=== PATIENT | female | born 1985 | race Caucasian/White ===

== ENCOUNTER 2016-12-27 09:19 | Day surgery (SDC) | payer OTHER ==
[2016-12-27] VITALS (15 sets, daily range): BP systolic 96–131; BP diastolic 61–76; PULSE 72–98; RESP 13–28; Ht 152.4 cm; Wt 50.3 kg
[~2016-12-27] VITALS: Ht 152.4 cm; Wt 50.3 kg
[2016-12-27] MEDS ORDERED: CEFAZOLIN 2 GM/50 ML (PMX) 50 ML IVPB SCH (10:30)
[2016-12-27] MEDS ORDERED: BUPIVACAINE 0.5% (SDV) 30 ML INJ ONE (10:38)
[2016-12-27] MEDS ORDERED: FENTAnyl 50 MCG/ML VIAL ONE (11:09)
[2016-12-27] MEDS ORDERED: MIDAZOLAM 1 MG/ML 2 ML INJ ONE (11:09)
[2016-12-27] MEDS ORDERED: PROPOFOL 20 ML ONE (11:09)
--- NOTE | 2016-12-27 11:10 | HPN ---
Date/Time of Note Date/Time of Note DATE: 12/27/16 TIME: 11:10 Interval H&P Admission Note Pt. seen H&P reviewed: No system changes JIMY HEDRICK DPM Dec 27, 2016 11:10
[2016-12-27] MEDS ORDERED: ONDANSETRON 4 MG INJ ONE (11:30)
[2016-12-27] MEDS ORDERED: CEFAZOLIN 1 GM INJ ONE (11:30)
[2016-12-27] MEDS ORDERED: METOCLOPRAMIDE 10 MG INJ ONE (11:30)
[2016-12-27] MEDS: FENTAnyl 50 MCG/ML VIAL IV PRN ×3 (12:18→13:41)
--- NOTE | 2016-12-27 12:25 | SIPON ---
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
--- NOTE | 2016-12-27 12:25 | OPR ---
Date/Time of Note Date/Time of Note DATE: 12/27/16 TIME: 12:25 Operative Report Procedure Date: Dec 27, 2016 Preoperative Diagnosis Painful exostosis right foot Painful soft tissue mass right foot Postoperative Diagnosis Painful exostosis right foot Painful soft tissue mass right foot Operation/Procedure Performed Exostectomy right foot Surgical excision right foot mass Surgeon see signature line [employer] None Anesthesia Type: MAC Estimated Blood Loss: minimal Transfusion none Specimen Right foot bone and soft tissue right foot. Grafts/Implants none Tubes/Drains None Complications none Pt Condition Post Procedure: stable Disposition: PACU Indications This is a pleasant 31-year-old female patient who has been suffering with pain in the right foot secondary to bony exostosis and possible soft tissue mass of the right foot. Patient was evaluated and was found to have exostosis right dorsal foot and soft tissue mobile mass. Patient has failed the following treatments: Change in shoe gear, pain medication, change in activity. Patient seeks surgical management. Recommended procedure: Surgical excision of painful soft tissue mass and ex ostomy of the right foot. Risks and complications of this type of surgery was discussed with patient in great detail. Risks and complications discussed included, but are not limited to, postoperative infection, postoperative pain, hardware failure, failure of surgery to correct the problem, need for additional surgical procedures, deep venous thrombosis, limb loss and loss of life. Patient understands the discussion and agrees to the procedure. An informed consent was signed, obtained and placed in the chart. No guarantees or warrantees was given or implied as to the outcome of the procedure either in verbal or written form. Procedure Description Procedure in detail: The patient was seen in the preoperative area. Proposed surgery was discussed with patient in great detail. Risks and complications were discussed. Opportunity was given to patient to ask questions and all questions were answered. No guarantee or warranty was given or implied as to the outcome of the procedure, either in verbal or written form. Patient acknowledges understanding of the discussion and agrees to the procedure. An informed consent was obtained, signed and placed in the chart. The patient was brought into the operating room and was placed on the operating table in the supine position. IV sedation was administered to the patient by the anesthesiologist and I injected the right ankle with 20 cc of a one-to-one mixture of 2% lidocaine plain and 0.5% Marcaine plain. A pneumatic ankle tourniquet was applied to the right ankle. The right foot was scrubbed, prepped and draped in the usual aseptic manner. An Esmarch bandage was utilized to exsanguinate the right foot and the pneumatic ankle tourniquet was inflated to 250 mmHg pressure. Attention was directed to the dorsal right foot: A small 2 cm incision was made over the dorsal aspect of the right foot over the midfoot area where the bony prominence was found. Dissection was deepened with care being taken to identify and protect vital neurovascular structures. Dissection was deepened to the periosteal layer and the exostosis was identified. Soft tissue mass was present which was surgically excised and passed to the back table. Ostectomy was performed using osteotomes and a mallet. Hand rasp was used to smooth out the rough edges. The wound was flushed with copious amounts of sterile normal saline. There was no further bony or soft tissue bump present or palpable in the area. Subcutaneous layer was closed using 3-0 Vicryl suture and the skin was closed using 5-0 Monocryl subcuticular stitch pattern. Steri-Strips were applied. Postoperative injection of 0.5% Marcaine plain was given about 10 cc in the area. Sterile dressing was applied to the right foot and the pneumatic ankle tourniquet was deflated at this time. Prompt hyperemic response was noted to digits of the right. The patient tolerated the procedure and anesthesia well. She was transferred to the recovery room with vital signs stable and vascular status intact to the right foot. Patient will be discharged home after postoperative monitoring. Postoperative orders have been written. Patient will be followed up in 1 week. JIMY HEDRICK DPM Dec 27, 2016 12:25 JIMY HEDRICK DPM Dec 27, 2016 12:25
[2016-12-27] MEDS ORDERED: DIPHENHYDRAMINE 50 MG INJ IV PRN (12:30)
[2016-12-27] MEDS ORDERED: LABETALOL HCL 20MG INJ IV PRN (12:30)
[2016-12-27] MEDS ORDERED: ONDANSETRON 4 MG INJ IV PRN (12:30)
[2016-12-27] MEDS ORDERED: FENTAnyl 50 MCG/ML VIAL IV PRN ×2 (12:30)
[2016-12-27] MEDS ORDERED: METOCLOPRAMIDE 10 MG INJ IV PRN (12:30)
[2016-12-27] MEDS ORDERED: EPHEDrine SULFATE 50 MG/5 ML SYG IV PRN (12:30)
[2016-12-27] MEDS ORDERED: OXYCODONE/ACETAMINOPHEN (5/325) TAB PO PRN ×2 (12:30)
[2016-12-27] MEDS ORDERED: MIDAZOLAM 1 MG/ML 2 ML INJ IV PRN (12:30)
[2016-12-27] MEDS ORDERED: hydrALAzine 20 MG INJ IV PRN (12:30)
[2016-12-27] MEDS ORDERED: MEPERIDINE 25 MG INJ IV PRN (12:30)
--- NOTE | 2016-12-27 16:15 | RADRPT ---
PROCEDURE: XR Foot. CLINICAL INDICATION: Right foot pain. TECHNIQUE: AP and lateral views of the right foot was obtained. The images were reviewed on a PAC S workstation. COMPARISON: None. FINDINGS: The bones of the foot appear intact, with no evidence of fracture, dislocation, or subluxation. The joint spaces are preserved. Bone mineralization is normal. The soft tissue structures are intact. IMPRESSION: Unremarkable right foot radiographs. RPTAT: HPNM Physician Josue Date Time Electronically viewed and signed by Physician Josue on 12/27/2016 16:14 /
== END 2016-12-27 14:37 | disposition home or self-care (01) ==
LOC: SDS 09:19
PROVIDERS: ATTEND Podiatrist Foot & Ankle Surgery
DX: M89.9 Disorder of bone, unspecified (principal); R22.41 Localized swelling, mass and lump, right lower limb; M79.671 Pain in right foot
CPT/HCPCS: 28108; 73620; 84703; 88304; 88307; 88311; J0690; J2175; J2250; J2405; J2765; J3010; Z7512; Z7610

== ENCOUNTER 2017-02-12 11:50 | Emergency (ER) | payer OTHER ==
[~2017-02-12] VITALS: Ht 162.6 cm; Wt 50.6 kg
[2017-02-12 11:56] VITALS: Ht 162.6 cm; Wt 50.6 kg
--- NOTE | 2017-02-12 13:13 | ERD ---
ER Documentation Chief Complaint Chief Complaint foot pain & swelling s/p surgery for bunion on 12/24/16 HPI 31-year-old female complaining of right foot pain 1.5 months. Patient stated that she had surgery on 12/27/2016 have been shaving on top of her right foot. She is having pain continuously since the surgery. Patient reports the bump on top of her foot is not even bigger than before the surgery. She has been following up with her duster tender, who had ordered x-ray 2 weeks ago. It was negative. [employer] also ordered MRI, patient still waiting for authorization for MRI. She is taking ibuprofen [place] prescribed to her by duster tender for pain. States that the medication did not help with her pain. His fever or chills. Denies erythema or drainage of the surgical site. ROS All systems reviewed and are negative except as per history of present illness. Medications Home Meds No Active Prescriptions or Reported Meds Allergies Allergies: Coded Allergies: No Known Allergy (Unverified , 12/27/16) PMhx/Soc History of Surgery: Yes (BREAST IMPLANTS) Anesthesia Reaction: No Hx Neurological Disorder: No Hx Respiratory Disorders: No Hx Cardiac Disorders: No Hx Psychiatric Problems: No Hx Miscellaneous Medical Probl: No Hx Alcohol Use: No Hx Substance Use: No Hx Tobacco Use: No Physical Exam Vitals Vital Signs Date Time Temp Pulse Resp B/P Pulse Ox O2 Delivery O2 Flow Rate FiO2 02/12/17 11:56 99.8 70 20 128/84 99 Physical Exam General: Well-developed, well-nourished, conscious and coherent, in no distress Skin: Warm and dry without rash, good texture and turgor Head: Normocephalic without evidence of trauma Eyes: Sclera and conjunctivae normal; pupils equal, round, and reactive to light; extraocular movements are intact Chest: Normal AP diameter. Good expansion without retractions. Nontender. Lungs are clear to auscultate bilaterally with good tidal volume Heart: Regular rate and rhythm. No murmur, rub, or gallops heard Extremities: Surgical scar noted on the dorsal right foot on the midfoot, no erythema, swelling, or exudate from the surgical site. Slightly tender to palpation at the surgical site. Full range of motion. Good strength bilaterally. No clubbing, cyanosis, or edema. Peripheral pulses are intact. Sensation intact Neuro: Alert and oriented 4, GCS 15. Cranial nerves grossly intact. Motor and sensory exams nonfocal. Moves all extremities. Speech clear. Gait normal Procedures/MDM Well-appearing 31-year-old female presented ED complaining of pain in the right foot after surgery. Patient does not have any sign of surgical site infection. I doubt fractures or dislocations. She is followed by her duster tender. I have asked patient to return to her duster tender for further follow-up and management. She has already received narcotic medications from her duster tender, I told her that I cannot write anymore pain medications for her. Patient appears well, stable for discharge and outpatient management. Medical decision making shared with patient and family. Education provided to patient and family. Patient and family expressed understanding of the plan. Medications on discharge: None. Follow-up: Primary care provider in 2-3 days or return to ED if worse. Disclaimer: Inadvertent spelling and grammatical errors are likely due to EHR/ dictation software use and do not reflect on the overall quality of patient care. Also, please note that the electronic time recorded on this note does not necessarily reflect the actual time of the patient encounter. Departure Diagnosis: Primary Impression: Foot pain Laterality: right Qualified Code: M79.671 - Right foot pain Condition: Stable Patient Instructions: Foot Surgery: Bone Spurs Additional Instructions: Follow up with your foot doctor. OSVALDO GONZALES NP Feb 12, 2017 13:13
== END 2017-02-12 13:55 | disposition left against medical advice (07) ==
LOC: FTE 11:50
DX: M79.671 Pain in right foot (principal); R40.2412 Glasgow coma scale score 13-15, at arrival to emergency department
CPT/HCPCS: 99282

== ENCOUNTER 2018-05-03 12:44 | Inpatient (IN) | payer OTHER ==
[2018-05-03] VITALS (15 sets, daily range): BP systolic 111–134; BP diastolic 74–89; PULSE 80–150; RESP 16–24; Ht 152.4 cm; Wt 52.4 kg
[~2018-05-03] VITALS: Ht 152.4 cm; Wt 52.4 kg
[2018-05-03] MEDS ORDERED: HYDROCODONE/APAP (5/325) TAB PO PRN (14:00)
[2018-05-03] MEDS ORDERED: NACL 0.9% 3 ML SYG IV SCH (14:00)
[2018-05-03] MEDS ORDERED: ACETAMINOPHEN 325 MG TAB PO PRN (14:00)
[2018-05-03] MEDS ORDERED: ONDANSETRON 4 MG INJ IV PRN ×2 (14:00→17:00)
--- NOTE | 2018-05-03 14:02 | HP ---
Date/Time of Note Date/Time of Note DATE: 05/03/18 TIME: 14:02 Assessment/Plan VTE Prophylaxis SCD applied (from Nsg): Yes Pharmacological prophylaxis: NA/contraindicated Pharm contraindication: bleeding Lines/Catheters IV Catheter Type (from Nrsg): Saline Lock Assessment/Plan Assessment/Plan 1. Acute GI bleed - Most likely from binge drinking over the past few weeks - GI consulted and taken to GI lab for emergent EGD to assess - Patient hgb dropped from 15 to 11.8 this am - Continue monitoring for further episode and transfuse if hgb <7.5 - PPI BID on board 2. Acute alcoholic hepatitis - improving. LFT are trending down - initially AST 286 and ALT 93 from OSH 3. Acute pancreatitis - lipase initially elevated but after given fluids resolved and lipase normalized 4. Acute blood loss anemia - monitor for further episodes 5. Thrombocytopenia - in setting of #2 6. Alcohol abuse - will give banana bag - quick librium taper - Ativan PRN - monitor for DTs 7. Diet - NPO for now 8. DVT ppx - SCD 9. GI ppx - PPI BID 10. Disposition - monitor in Telemetry and undergoing workup for acute GI bleeding HPI/ROS Admit Date/Time Admit Date/Time May 03, 2018 at 12:44 Hx of Present Illness 32 yo F with recent PNA initially presented to [place] ED after experiencing abdominal pain for the past 4 days with nausea and vomiting for the past day. Patient states she has been traveling since Apr 11 and was in [place] from - . She was exposed to sick passengers on the plane ride and seen at urgent care. She started on prophylasix Tamiflu but symptoms did not improve. She returned to ED in [place] and dx with PNA. She completed a course of antibiotics with improvement in respiratory status Patient states she was then in [place] from - where she was drinking wine daily and stopped once she returned home. She admits friends came over and continued drinking wine daily until yesterday. Patient admits to being in her kitchen, washing her hand, and woke up on the ground. She attributed the event to not having eating in 6 days due to drinking and went to sleep. Patient awoke with the urge to defecate and notice a large amount of dark blood in the toilet at 2am and went to the ER. Patient was seen at [place] and transferred to [facility] due to being her capitated hospital. Patient admitted to bilious vomiting without blood and epigastric abdominal pain but denies chest pain, shortness of breath, dizziness, urinary issues, constipation or diarrhea. Records from OSH 05/03 hgb 15, Hct 46.7, plt 101 Na 134, K 3.8 Cl 98, Co2 21, AST 286, ALT 93, Lipase 67 CXR negative RUQ US- GB sludge CT scan A/P- negative ROS All 12 systems reviewed and pertinent positives as per HPI. All others negative, Constitutional: nausea; No chills, No fatigue Eyes: No discharge ENT: No congestion Respiratory: No shortness of breath, No sputum, No wheezing Cardiovascular: lightheadedness Gastrointestinal: pain, blood, nausea, vomiting; No constipation, No diarrhea Genitourinary: no complaints Musculoskeletal: no complaints Skin: No laceration, No rash Neurologic: syncope; No dizziness Endocrine: no complaints Lymphatic: no complaints Psychological: nl mood/affect Immunologic: no complaints PMH/Family/Social Past Medical History Medical History: no pertinent history Coded Allergies: No Known Allergy (Unverified , 12/27/16) Past Surgical History Past Surgical Hx: other (breast implants, lasix, foot procedure) Family History Significant Family History: no pertinent family hx Social History Alcohol Use: heavy Smoking Status: Never smoker Drug Use: none Exam/Review of Systems Vital Signs Vitals Vital Signs Date Temp Pulse Resp B/P (MAP) Pulse Ox O2 O2 Flow FiO2 Time Delivery Rate 05/03/18 98.1 103 17 129/88 98 Room Air 13:31 (102) Exam Exam General: Currently lying in bed, in no acute distress, fatigued HEENT: Atraumatic, normocephalic. The pupils are equal, round and reactive. Extraocular motor are intact Neck: Supple with full range of motion. No rigidity or meningismus Chest: nontender Lungs: Clear to auscultation bilaterally no crackles rales or wheezing Heart: Normal S1-S2, Regular rhythm and tachycardia. No overt murmurs appreciated on auscultation Abdomen: Soft , nontender, nondistended , bowel sounds are present. No guarding no rebound tenderness , No masses or organomegaly. No costovertebral temporal angle mass Extremities: Normal to inspection, no edema no cyanosis Neurologic: Normal mental status, speech normal, cranial nerves II through XII are intact, motor and sensory are intact, no focal weakness with no focal neurological deficits Skin: no rashes or lesions Additional Comments No home medications BRENDA LUCIO MD May 03, 2018 14:02
[2018-05-03] MEDS: morphine 2 MG INJ IV PRN ×2 (15:13→19:30)
[2018-05-03] MEDS: DEXTROSE 5%-0.45% NACL 1,000 ML IV SCH (16:00)
[2018-05-03] MEDS: CHLORDIAZEPOXIDE 25 MG CAP PO SCH ×2 (16:00→22:45)
--- NOTE | 2018-05-03 16:51 | PREAC ---
Date/Time of Note Date/Time of Note DATE: 05/03/18 TIME: 16:49 Anesthesia Eval and Record Evaluation Time Pre-Procedure Interview DATE: 05/03/18 TIME: 16:49 Age 32 Sex female NPO: 8 hrs Preoperative diagnosis GI BLEED Planned procedure EGD Past Medical History Past Medical History: Includes Heme: Anemia Surgery & Anesthesia Issues No known issue Meds Anticoagulation: No Beta Mustapha within 24 hr: No Reason Beta Mustapha not given: Pt. not on B-Mustapha No Active Prescriptions or Reported Meds Current Medications IV Flush (NS 3 ml) 3 ml PER PROTOCOL IV ; Start 05/03/18 at 14:00 Ondansetron HCl (Zofran Inj) 4 mg Q6H PRN IV NAUSEA/VOMITING; Start 05/03/18 at 14:00 Acetaminophen (Tylenol Tab) 650 mg Q6H PRN PO .PAIN 1-3 OR TEMP; Start 05/03/18 at 14:00 Acetaminophen/ Hydrocodone Bitart ([place] (5/325)) 1 tab Q6H PRN PO .PAIN 4-6; Start 05/03/18 at 14:00 Morphine Sulfate (morphine) 2 mg Q4H PRN IV .PAIN 7-10 Last administered on 05/03/18at 15:13; Admin Dose 2 MG; Start 05/03/18 at 14:00 Pantoprazole (Protonix Iv) 40 mg BID@0600,1800 IV ; Start 05/03/18 at 18:00 Multivitamins 10 ml/Thiamine HCl 100 mg/Folic Acid 1 mg/Sodium Chloride 1,011.2 ml @ 125 mls/ hr DAILY@09 IVPB ; Start 05/03/18 at 16:00; Stop 05/04/18 at 15:59 Dextrose/Sodium Chloride 1,000 ml @ 75 mls/hr [id number] IV ; Start 05/03/18 at 16:00 Chlordiazepoxide (Librium) 25 mg TID PO ; Start 05/03/18 at 16:00 Potassium Chloride 100 ml @ 50 mls/hr Q2H IVPB ; Start 05/03/18 at 17:00; Stop 05/03/18 at 20:59; Status UNV Magnesium Sulfate 50 ml @ 25 mls/hr ONCE ONCE IVPB ; Start 05/03/18 at 17:00; Stop 05/03/18 at 18:59; Status UNV Meds reviewed: Yes Allergies Coded Allergies: No Known Allergy (Unverified , 12/27/16) Allergies Reviewed: Yes Labs/Studies Labs Reviewed: Reviewed by anesthesiologist Result Diagram: 05/03/18 1452 05/03/18 1452 Laboratory Tests 05/03/18 14:52 test: Negative Pre-procedure Exam Last vitals Vital Signs Date Temp Pulse Resp B/P (MAP) Pulse Ox O2 O2 Flow FiO2 Time Delivery Rate 05/03/18 111 16:48 05/03/18 Room Air 16:34 05/03/18 98.1 17 129/88 98 13:31 (102) Airway: Adequate mouth opening, Adequate thyromental dist Mallampati: Mallampati I Teeth: Normal Lung: Normal Heart: Normal ASA Physical Status ASA physical status: 2 Emergency: None Planned Anesthetic General/MAC: MAC Planned Pain Management Other neuraxial med Pre-operative Attestations Prior to commencing anesthesia and surgery, the patient was re-evaluated, there was verification of: *The patient's identity *The results of appropriate recent lab work and preoperative vital signs *The above evaluation not changing prior to induction *Anesthetic plan, risk benefits, alternative and complications discussed with patient/family; questions answered; patient/family understands, accepts and wishes to proceed. NATALIE KATZ May 03, 2018 16:50
[2018-05-03] MEDS ORDERED: ALBUTEROL 0.083% (NEB) 2.5 MG/3 ML AMP HHN PRN (17:00)
[2018-05-03] MEDS ORDERED: EPHEDrine SULFATE 50 MG/5 ML SYG IV PRN (17:00)
[2018-05-03] MEDS ORDERED: hydrALAzine 20 MG INJ IV PRN (17:00)
[2018-05-03] MEDS ORDERED: FENTAnyl 50 MCG/ML VIAL IV PRN (17:00)
[2018-05-03] MEDS ORDERED: DIPHENHYDRAMINE 50 MG INJ IV PRN (17:00)
[2018-05-03] MEDS ORDERED: MAGNESIUM SULFATE 2 GM/50 ML 50 ML IVPB ONE ×2 (17:00→22:30)
[2018-05-03] MEDS ORDERED: LABETALOL HCL 20MG INJ IV PRN (17:00)
[2018-05-03] MEDS ORDERED: MEPERIDINE 25 MG INJ IV PRN (17:00)
[2018-05-03] MEDS ORDERED: LIDOCAINE 2% (SDV) 5 ML INJ ONE (17:10)
[2018-05-03] MEDS ORDERED: PROPOFOL 40 ML ONE (17:10)
--- NOTE | 2018-05-03 17:41 | PAC ---
Date/Time of Note Date/Time of Note DATE: 05/03/18 TIME: 17:40 Post-Anesthesia Notes Post-Anesthesia Note Last documented vital signs Vital Signs Date Temp Pulse Resp B/P (MAP) Pulse Ox O2 O2 Flow FiO2 Time Delivery Rate 05/03/18 98.3 150 130/87 99 17:40 05/03/18 98.0 18 134/84 99 Room Air 17:07 (101) Activity: WNL Respiratory function: WNL Cardiovascular function: WNL Mental status: Baseline Pain reasonably controlled: Yes Hydration appropriate: Yes Nausea/Vomiting absent: Yes NATALIE KATZ May 03, 2018 17:41
--- NOTE | 2018-05-03 17:43 | CONS ---
Assessment/Plan Assessment/Plan Assessment/Plan (Daily) Assessment: GI bleeding likely upper GI Heavy ethanol abuse. Probable alcoholic liver disease. Plan: EGD today. Further recommendation will depend on findings. Consultation Date/Type/Reason Admit Date/Time May 03, 2018 at 12:44 Date of Consultation: May 03, 2018 Type of Consult GI Date/Time of Note DATE: 05/03/18 TIME: 17:35 Hx of Present Illness 32-year-old female admittedly heavy ethanol abuser. Transferred from [facility] where she presented complaining of abdominal pain and melena GI bleed in the form of dark red blood per rectum. The patient shows evidence of early withdrawal syndrome with tremor. She does complain of epigastric abdominal pain. She has had no hematemesis and no further episodes of melena or hematochezia. Patient will be evaluated endoscopically at this time. Further recommendation will depend on her clinical course as well as findings Review of Systems: [A 12 system, review was conducted and is negative except as noted in the HPI or here.] Gastrointestinal and liver: [As noted in HPI] Past Medical History Alcohol abuse Home Meds No Active Prescriptions or Reported Meds Medications Current Medications IV Flush (NS 3 ml) 3 ml PER PROTOCOL IV ; Start 05/03/18 at 14:00 Ondansetron HCl (Zofran Inj) 4 mg Q6H PRN IV NAUSEA/VOMITING; Start 05/03/18 at 14:00 Acetaminophen (Tylenol Tab) 650 mg Q6H PRN PO .PAIN 1-3 OR TEMP; Start 05/03/18 at 14:00 Acetaminophen/ Hydrocodone Bitart ([place] (5/325)) 1 tab Q6H PRN PO .PAIN 4-6; Start 05/03/18 at 14:00 Morphine Sulfate (morphine) 2 mg Q4H PRN IV .PAIN 7-10 Last administered on 05/03/18at 15:13; Admin Dose 2 MG; Start 05/03/18 at 14:00 Pantoprazole (Protonix Iv) 40 mg BID@0600,1800 IV ; Start 05/03/18 at 18:00 Multivitamins 10 ml/Thiamine HCl 100 mg/Folic Acid 1 mg/Sodium Chloride 1,011.2 ml @ 125 mls/ hr DAILY@09 IVPB ; Start 05/03/18 at 16:00; Stop 05/04/18 at 15:59 Dextrose/Sodium Chloride 1,000 ml @ 75 mls/hr [id number] IV ; Start 05/03/18 at 16:00 Chlordiazepoxide (Librium) 25 mg TID PO ; Start 05/03/18 at 16:00 Potassium Chloride 100 ml @ 50 mls/hr Q2H IVPB ; Start 05/03/18 at 17:00; Stop 05/03/18 at 20:59 Magnesium Sulfate 50 ml @ 25 mls/hr ONCE ONCE IVPB ; Start 05/03/18 at 17:00; Stop 05/03/18 at 18:59 Fentanyl (Sublimaze) 25 mcg PACU ORDER PRN IV MILD PAIN 1-3; Start 05/03/18 at 17:00; Stop 05/03/18 at 21:00 Ondansetron HCl (Zofran Inj) 4 mg PACU ORDER PRN IV NAUSEA/VOMITING; Start 05/03/18 at 17:00; Stop 05/03/18 at 21:00 Labetalol HCl (Labetalol) 5 mg PACU ORDER PRN IV HIGH BLOOD PRESSURE; Start 05/03/18 at 17:00; Stop 05/03/18 at 21:00 Hydralazine HCl (Apresoline) 5 mg PACU ORDER PRN IV HIGH BLOOD PRESSURE; Start 05/03/18 at 17:00; Stop 05/03/18 at 21:00 Ephedrine Sulfate 5 mg PACU ORDER PRN IV BLOOD PRESSURE SUPPORT; Start 05/03/18 at 17:00; Stop 05/03/18 at 21:00 Albuterol (Proventil 0.083% (Neb)) 2.5 mg PACU ORDER PRN HHN .WHEEZING; Start 05/03/18 at 17:00; Stop 05/03/18 at 21:00 Meperidine HCl (Demerol) 25 mg PACU ORDER PRN IV .RIGORS; Start 05/03/18 at 17:00; Stop 05/03/18 at 21:00 Diphenhydramine HCl (Benadryl) 25 mg PACU ORDER PRN IV .PRURITUS; Start 05/03/18 at 17:00; Stop 05/03/18 at 21:00 Allergies: Coded Allergies: No Known Allergy (Unverified , 12/27/16) Social History Alcohol Use: heavy Smoking Status: Never smoker Drug Use: none Exam/Review of Systems Exam Vitals Vital Signs Date Temp Pulse Resp B/P (MAP) Pulse Ox O2 O2 Flow FiO2 Time Delivery Rate 05/03/18 150 17:11 05/03/18 98.0 18 134/84 99 Room Air 17:07 (101) Exam PHYSICAL EXAMINATION: GENERAL: Well developed, well nourished, alert & oriented x 3, tremulous, in no acute distress SKIN: No lesions, no stigmata chronic liver disease, no evidence of bleeding diathesis LYMPHATIC: No palpable lymphadenopathy. HEAD: Normocephalic, atraumatic, no tenderness. EYES: Pupils equal reactive to light and accommodation, full extraocular movements, sclera clear, non-icteric, no discharge. EARS/NOSE AND THROAT: Ears normal, nose normal, oropharynx normal, oral membranes well hydrated without lesions. NECK: Supple, no masses, thyroid normal, JVP within normal limits, carotids normal without bruits. CHEST: Inspection within normal limits. CARDIOVASCULAR: Heart: Regular rate and rhythm, no murmurs, gallops or rubs. Peripheral pulses present within normal limits, no cyanosis, clubbing or edemas. No pulsatile abdominal mass RESPIRATORY: Lungs clear to auscultation and percussion, no wheezing, no rubs GASTROINTESTINAL AND LIVER: Abdomen: Soft, moderate epigastric tenderness, non- distended, no hernias, no masses, no organomegaly, no ascites, no guarding, no rebound tenderness, normoactive bowel sounds. Rectal: Deferred. GENITOURINARY: [Female genitalia within normal limits.] EXTREMITIES: No cyanosis, clubbing or edema. Results Result Diagram: 05/03/18 1452 05/03/18 1452 Results 24hrs Laboratory Tests Test 05/03/18 14:52 White Blood Count 4.4 L Red Blood Count 4.02 L Hemoglobin 11.8 L Hematocrit 33.9 L Mean Corpuscular Volume 84.3 Mean Corpuscular Hemoglobin 29.4 Mean Corpuscular Hemoglobin Concent 34.8 Red Cell Distribution Width 14.8 H Platelet Count 54 L Mean Platelet Volume 9.6 Immature Granulocytes % 0.200 Neutrophils % 71.6 Segmented Neutrophils % (Manual) 74 Band Neutrophils % (Manual) 2 Lymphocytes % 17.4 Lymphocytes % (Manual) 13 L Reactive Lymphocytes % (Manual) 3 H Monocytes % 9.0 Monocytes % (Manual) 4 Eosinophils % 1.1 Eosinophils % (Manual) 3 Basophils % 0.7 Basophils % (Manual) 1 Nucleated Red Blood Cells % 0.0 Immature Granulocytes # 0.010 Neutrophils # 3.2 Neutrophils # (Manual) 3.3 Band Neutrophils # 0.0 Lymphocytes (Manual) 0.5 L Lymphocytes # 0.8 Reactive Lymphocytes # 0.1 H Monocytes # 0.4 Monocytes # (Manual) 0.1 L Eosinophils # 0.1 Basophils # 0.0 Basophils # (Manual) 0.0 Nucleated Red Blood Cells # 0.0 Platelet Estimate DECREASED Polychromasia 1+ Sodium Level 132 L Potassium Level 3.4 L Chloride Level 97 Carbon Dioxide Level 28 Anion Gap 7 Blood Urea Nitrogen 3 L Creatinine 0.57 Est Glomerular Filtrat Rate mL/min > 60 Glucose Level 102 Calcium Level 8.1 L Magnesium Level 1.4 L Total Bilirubin 0.5 Direct Bilirubin 0.00 Indirect Bilirubin 0.5 Aspartate Amino Transf (AST/SGOT) 181 H Alanine Aminotransferase (ALT/SGPT) 80 H Alkaline Phosphatase 84 Total Protein 7.4 Albumin 3.7 Globulin 3.70 H Albumin/Globulin Ratio 1.00 Lipase 160 Medications Medication Current Medications IV Flush (NS 3 ml) 3 ml PER PROTOCOL IV ; Start 05/03/18 at 14:00 Ondansetron HCl (Zofran Inj) 4 mg Q6H PRN IV NAUSEA/VOMITING; Start 05/03/18 at 14:00 Acetaminophen (Tylenol Tab) 650 mg Q6H PRN PO .PAIN 1-3 OR TEMP; Start 05/03/18 at 14:00 Acetaminophen/ Hydrocodone Bitart ([place] (5/325)) 1 tab Q6H PRN PO .PAIN 4-6; Start 05/03/18 at 14:00 Morphine Sulfate (morphine) 2 mg Q4H PRN IV .PAIN 7-10 Last administered on 05/03/18at 15:13; Admin Dose 2 MG; Start 05/03/18 at 14:00 Pantoprazole (Protonix Iv) 40 mg BID@0600,1800 IV ; Start 05/03/18 at 18:00 Multivitamins 10 ml/Thiamine HCl 100 mg/Folic Acid 1 mg/Sodium Chloride 1,011.2 ml @ 125 mls/ hr DAILY@09 IVPB ; Start 05/03/18 at 16:00; Stop 05/04/18 at 15:59 Dextrose/Sodium Chloride 1,000 ml @ 75 mls/hr [id number] IV ; Start 05/03/18 at 16:00 Chlordiazepoxide (Librium) 25 mg TID PO ; Start 05/03/18 at 16:00 Potassium Chloride 100 ml @ 50 mls/hr Q2H IVPB ; Start 05/03/18 at 17:00; Stop 05/03/18 at 20:59 Magnesium Sulfate 50 ml @ 25 mls/hr ONCE ONCE IVPB ; Start 05/03/18 at 17:00; Stop 05/03/18 at 18:59 Fentanyl (Sublimaze) 25 mcg PACU ORDER PRN IV MILD PAIN 1-3; Start 05/03/18 at 17:00; Stop 05/03/18 at 21:00 Ondansetron HCl (Zofran Inj) 4 mg PACU ORDER PRN IV NAUSEA/VOMITING; Start 05/03/18 at 17:00; Stop 05/03/18 at 21:00 Labetalol HCl (Labetalol) 5 mg PACU ORDER PRN IV HIGH BLOOD PRESSURE; Start 05/03/18 at 17:00; Stop 05/03/18 at 21:00 Hydralazine HCl (Apresoline) 5 mg PACU ORDER PRN IV HIGH BLOOD PRESSURE; Start 05/03/18 at 17:00; Stop 05/03/18 at 21:00 Ephedrine Sulfate 5 mg PACU ORDER PRN IV BLOOD PRESSURE SUPPORT; Start 05/03/18 at 17:00; Stop 05/03/18 at 21:00 Albuterol (Proventil 0.083% (Neb)) 2.5 mg PACU ORDER PRN HHN .WHEEZING; Start 05/03/18 at 17:00; Stop 05/03/18 at 21:00 Meperidine HCl (Demerol) 25 mg PACU ORDER PRN IV .RIGORS; Start 05/03/18 at 17:00; Stop 05/03/18 at 21:00 Diphenhydramine HCl (Benadryl) 25 mg PACU ORDER PRN IV .PRURITUS; Start 05/03/18 at 17:00; Stop 05/03/18 at 21:00 ANGELIC PAGE MD May 03, 2018 17:43
--- NOTE | 2018-05-03 17:44 | HPN ---
Date/Time of Note Date/Time of Note DATE: 05/03/18 TIME: 17:44 Interval H&P Admission Note Pt. seen H&P reviewed: No system changes ANGELIC PAGE MD May 03, 2018 17:44
--- NOTE | 2018-05-03 18:05 | NUR ---
PACU NOTES RECEIVED FROM GI LAB AT 1737, AWAKE AND ALERT, CELLPHONE WITH THE PATIENT. DENIES NAUSEA AND DISCOMFORT. PHONE REPORT GIVEN TO ARIN PRESLEY TRANSFERRED TO [facility] AT 1805 WITH THE TELEMETRY PORTABLE MONITOR.
[2018-05-03] MEDS: PANTOPRAZOLE 40 MG INJ IV SCH (18:17)
[2018-05-03] MEDS: METOCLOPRAMIDE 10 MG INJ IV SCH (18:17)
[2018-05-03] MEDS: MULTIVITAMINS 10 ML, THIAMINE 100 MG, FOLIC ACID 1 MG in SOD CHLORIDE 0.9% 1,000 ML IVPB SCH (18:17)
[2018-05-03] MEDS: POTASSIUM CHLORIDE 100 ML IVPB SCH ×2 (18:17→22:00)
--- NOTE | 2018-05-03 18:25 | NUR ---
END OF SHIFT RECEIVED FROM PACU, A/OX4, DENIES PAIN, DEMONSTRATES USE OF CALL LIGHT, BED ALARM ENGAGED
[2018-05-03] MEDS ORDERED: POTASSIUM CHLORIDE (SR) 20 MEQ TAB PO STA ×2 (21:59→22:03)
[2018-05-04] VITALS (10 sets, daily range): BP systolic 109–148; BP diastolic 76–92; PULSE 87–127; RESP 16–18
[2018-05-04] MEDS: METOCLOPRAMIDE 10 MG INJ IV SCH ×5 (00:11→23:56)
[2018-05-04] MEDS: DEXTROSE 5%-0.45% NACL 1,000 ML IV SCH ×2 (05:20→09:11)
[2018-05-04] MEDS: PANTOPRAZOLE 40 MG INJ IV SCH ×2 (05:48→17:44)
--- NOTE | 2018-05-04 06:40 | NUR ---
eoss; pt verbalized feeling much better this am after a stan sleep. ivf banana bag still infusing at 125cc/h. had 1 stool specimen sent to lab . awaiting labs this am . will continue to monitor.
[2018-05-04] MEDS: CHLORDIAZEPOXIDE 25 MG CAP PO SCH (08:12)
[2018-05-04] MEDS: MULTIVITAMINS 10 ML, THIAMINE 100 MG, FOLIC ACID 1 MG in SOD CHLORIDE 0.9% 1,000 ML IVPB SCH (09:00)
--- NOTE | 2018-05-04 09:05 | PN ---
Date/Time of Note Date/Time of Note DATE: 05/04/18 TIME: 09:05 Assessment/Plan VTE Prophylaxis Risk score (from Ns)>0 risk: 1 SCD applied (from Ns): Yes Pharmacological prophylaxis: NA/contraindicated Pharm contraindication: bleeding Lines/Catheters [facility] Per[facility] IV Assessment/Plan Assessment/Plan 1. Acute GI bleed secondary to shallow gastric ulcers - Will need to continue on PPI and Carafate for 3 months. Outpt follow up in 2 months for repeat EGD - GI consultation appreciated and EGD performed yesterday showed shallow based ulcers - hgb improving this am - Continue monitoring for further episode and transfuse if hgb <7.5 2. Acute alcoholic hepatitis- improving - LFT trending down and counseled patient regarding alcohol cessation 3. Acute pancreatitis- resolved 4. Acute blood loss anemia- improving - monitor for further episodes 5. Thrombocytopenia- improving - in setting of #2 6. Alcohol abuse - monitor for withdrawal - quick Librium taper - Ativan PRN 7. Disposition - Monitor for another 24 hours for any DT given patient with diaphoresis overnight and this am. If remains stable, will d/c tomorrow Result Diagram: 05/04/18 0705/04/18 0726 Results 24hrs Laboratory Tests Test 05/03/18 14:52 05/04/18 07:26 05/04/18 07:27 White Blood Count 4.4 L 3.5 #L Red Blood Count 4.02 L 4.68 Hemoglobin 11.8 L 13.5 Hematocrit 33.9 L 40.3 Mean Corpuscular Volume 84.3 86.1 Mean Corpuscular Hemoglobin 29.4 28.8 L Mean Corpuscular Hemoglobin Concent 34.8 33.5 Red Cell Distribution Width 14.8 H 14.8 H Platelet Count 54 L 70 #L Mean Platelet Volume 9.6 11.2 H Immature Granulocytes % 0.200 0.300 Neutrophils % 71.6 71.6 Segmented Neutrophils % (Manual) 74 Band Neutrophils % (Manual) 2 Lymphocytes % 17.4 16.8 Lymphocytes % (Manual) 13 L Reactive Lymphocytes % (Manual) 3 H Monocytes % 9.0 7.8 Monocytes % (Manual) 4 Eosinophils % 1.1 2.6 Eosinophils % (Manual) 3 Basophils % 0.7 0.9 Basophils % (Manual) 1 Nucleated Red Blood Cells % 0.0 0.0 Immature Granulocytes # 0.010 0.010 Neutrophils # 3.2 2.5 Neutrophils # (Manual) 3.3 Band Neutrophils # 0.0 Lymphocytes (Manual) 0.5 L Lymphocytes # 0.8 0.6 L Reactive Lymphocytes # 0.1 H Monocytes # 0.4 0.3 Monocytes # (Manual) 0.1 L Eosinophils # 0.1 0.1 Basophils # 0.0 0.0 Basophils # (Manual) 0.0 Nucleated Red Blood Cells # 0.0 0.0 Platelet Estimate DECREASED Polychromasia 1+ Sodium Level 132 L 136 Potassium Level 3.4 L 4.0 Chloride Level 97 100 Carbon Dioxide Level 28 28 Anion Gap 7 8 Blood Urea Nitrogen 3 L 3 L Creatinine 0.57 0.66 Est Glomerular Filtrat Rate mL/min > 60 > 60 Glucose Level 102 97 Calcium Level 8.1 L 9.0 Magnesium Level 1.4 L 2.5 # Total Bilirubin 0.5 0.5 Direct Bilirubin 0.00 0.00 Indirect Bilirubin 0.5 0.5 Aspartate Amino Transf (AST/SGOT) 181 H 138 H Alanine Aminotransferase (ALT/SGPT) 80 H 61 Alkaline Phosphatase 84 101 Total Protein 7.4 8.1 Albumin 3.7 4.2 Globulin 3.70 H 3.90 H Albumin/Globulin Ratio 1.00 1.07 Lipase 160 Subjective 24 Hr Interval Summary Free Text/Dictation Patient feeling better but still with some discomfort with eating. She admits to diaphoresis but denies any palpitations or other withdrawal sx Exam/Review of Systems Exam Vitals Vital Signs Date Temp Pulse Resp B/P (MAP) Pulse Ox O2 O2 Flow FiO2 Time Delivery Rate 05/04/18 100 08:19 05/04/18 98.9 18 140/92 99 07:15 (108) 05/03/18 Room Air 17:57 Intake and Output 05/03/18 05/03/18 05/04/18 1414:59 22:59 06:59 IntakeIntake Total 300 ml 650 ml BalanceBalance 300 ml 650 ml Exam General: no acute distress Neck: Supple Chest: nontender Lungs: Clear to auscultation bilaterally no crackles rales or wheezing Heart: Normal S1-S2, Regular rhythm and rate. No overt murmurs appreciated on auscultation Abdomen: Soft , nontender, nondistended , bowel sounds are present. No guarding no rebound tenderness Results Results 24hrs Laboratory Tests Test 05/03/18 14:52 05/04/18 07:26 05/04/18 07:27 White Blood Count 4.4 L 3.5 #L Red Blood Count 4.02 L 4.68 Hemoglobin 11.8 L 13.5 Hematocrit 33.9 L 40.3 Mean Corpuscular Volume 84.3 86.1 Mean Corpuscular Hemoglobin 29.4 28.8 L Mean Corpuscular Hemoglobin Concent 34.8 33.5 Red Cell Distribution Width 14.8 H 14.8 H Platelet Count 54 L 70 #L Mean Platelet Volume 9.6 11.2 H Immature Granulocytes % 0.200 0.300 Neutrophils % 71.6 71.6 Segmented Neutrophils % (Manual) 74 Band Neutrophils % (Manual) 2 Lymphocytes % 17.4 16.8 Lymphocytes % (Manual) 13 L Reactive Lymphocytes % (Manual) 3 H Monocytes % 9.0 7.8 Monocytes % (Manual) 4 Eosinophils % 1.1 2.6 Eosinophils % (Manual) 3 Basophils % 0.7 0.9 Basophils % (Manual) 1 Nucleated Red Blood Cells % 0.0 0.0 Immature Granulocytes # 0.010 0.010 Neutrophils # 3.2 2.5 Neutrophils # (Manual) 3.3 Band Neutrophils # 0.0 Lymphocytes (Manual) 0.5 L Lymphocytes # 0.8 0.6 L Reactive Lymphocytes # 0.1 H Monocytes # 0.4 0.3 Monocytes # (Manual) 0.1 L Eosinophils # 0.1 0.1 Basophils # 0.0 0.0 Basophils # (Manual) 0.0 Nucleated Red Blood Cells # 0.0 0.0 Platelet Estimate DECREASED Polychromasia 1+ Sodium Level 132 L 136 Potassium Level 3.4 L 4.0 Chloride Level 97 100 Carbon Dioxide Level 28 28 Anion Gap 7 8 Blood Urea Nitrogen 3 L 3 L Creatinine 0.57 0.66 Est Glomerular Filtrat Rate mL/min > 60 > 60 Glucose Level 102 97 Calcium Level 8.1 L 9.0 Magnesium Level 1.4 L 2.5 # Total Bilirubin 0.5 0.5 Direct Bilirubin 0.00 0.00 Indirect Bilirubin 0.5 0.5 Aspartate Amino Transf (AST/SGOT) 181 H 138 H Alanine Aminotransferase (ALT/SGPT) 80 H 61 Alkaline Phosphatase 84 101 Total Protein 7.4 8.1 Albumin 3.7 4.2 Globulin 3.70 H 3.90 H Albumin/Globulin Ratio 1.00 1.07 Lipase 160 Medications Medication Current Medications IV Flush (NS 3 ml) 3 ml PER PROTOCOL IV ; Start 05/03/18 at 14:00 Ondansetron HCl (Zofran Inj) 4 mg Q6H PRN IV NAUSEA/VOMITING Last administered on 05/03/18 19:31; Admin Dose 4 MG; Start 05/03/18 at 14:00 Acetaminophen (Tylenol Tab) 650 mg Q6H PRN PO .PAIN 1-3 OR TEMP; Start 05/03/18 at 14:00 Acetaminophen/ Hydrocodone Bitart ([place] (5/325)) 1 tab Q6H PRN PO .PAIN 4-6; Start 05/03/18 at 14:00 Morphine Sulfate (morphine) 2 mg Q4H PRN IV .PAIN 7-10 Last administered on 05/03/18 19:30; Admin Dose 2 MG; Start 05/03/18 at 14:00 Pantoprazole (Protonix Iv) 40 mg BID@0600,1800 IV Last administered on 05/04/18 05:48; Admin Dose 40 MG; Start 05/03/18 at 18:00 Multivitamins 10 ml/Thiamine HCl 100 mg/Folic Acid 1 mg/Sodium Chloride 1,011.2 ml @ 125 mls/ hr DAILY@09 IVPB Last administered on 05/03/18 18:17; Admin Dose 125 MLS/HR; Start 05/03/18 at 16:00; Stop 05/04/18 at 15:59 Dextrose/Sodium Chloride 1,000 ml @ 75 mls/hr [id number] IV ; Start 05/03/18 at 16:00 Chlordiazepoxide (Librium) 25 mg TID PO Last administered on 05/04/18 08:12; Admin Dose 25 MG; Start 05/03/18 at 16:00 Metoclopramide HCl (Reglan) 10 mg Q6 IV Last administered on 05/04/18 05:48; Admin Dose 10 MG; Start 05/03/18 at 18:00 BRENDA LUCIO MD May 04, 2018 09:05
--- NOTE | 2018-05-04 14:33 | PN ---
Date/Time of Note Date/Time of Note DATE: 05/04/18 TIME: 14:18 Assessment/Plan VTE Prophylaxis Risk score (from Nsg)>0 risk: 0 SCD applied (from Nsg): No SCD contraindicated: low risk/ambulating Pharmacological prophylaxis: NA/contraindicated Pharm contraindication: bleeding Lines/Catheters IV Catheter Type (from Nrsg): Peripheral IV Assessment/Plan Assessment/Plan Assessment: GI bleeding likely upper GI S/o EGD 05/03/18 - Shallow gastric ulcers Heavy ethanol abuse. Probable alcoholic liver disease - elevated AST Plan: [place] diet GI cocktail Protonix 40 mg BID Carafate QID Stool for H pylori Avoid NSAIDs Avoid Alcohol Repeat EGD in 8 weeks Patient seen in collaboration with Dr. Spencer Subjective: Patient is c/o Epigastric pain worsening with meals. Results of EGD reviewed with the paitient. Recommend repeat EGD in 8 weeks to assess the healing on Lu. Continue PPI BID and Carafate QID for 3 months. PHYSICAL EXAMINATION: GENERAL: Well developed, well nourished, alert & oriented x 3, tremulous, in no acute distress SKIN: No lesions, no stigmata chronic liver disease, no evidence of bleeding diathesis LYMPHATIC: No palpable lymphadenopathy. HEAD: Normocephalic, atraumatic, no tenderness. EYES: Pupils equal reactive to light and accommodation, full extraocular movements, sclera clear, non-icteric, no discharge. EARS/NOSE AND THROAT: Ears normal, nose normal, oropharynx normal, oral membranes well hydrated without lesions. NECK: Supple, no masses, thyroid normal, JVP within normal limits, carotids normal without bruits. CHEST: Inspection within normal limits. CARDIOVASCULAR: Heart: Regular rate and rhythm, no murmurs, gallops or rubs. Per ipheral pulses present within normal limits, no cyanosis, clubbing or edemas. No pulsatile abdominal mass RESPIRATORY: Lungs clear to auscultation and percussion, no wheezing, no rubs GASTROINTESTINAL AND LIVER: Abdomen: Soft, moderate epigastric tenderness, non- distended, no hernias, no masses, no organomegaly, no ascites, no guarding, no rebound tenderness, normoactive bowel sounds. Rectal: Deferred. GENITOURINARY: Female genitalia within normal limits. EXTREMITIES: No cyanosis, clubbing or edema. Result Diagram: 05/04/18 0727 05/04/18 0726 Results 24hrs Laboratory Tests Test 05/03/18 14:52 05/04/18 07:26 05/04/18 07:27 White Blood Count 4.4 L 3.5 #L Red Blood Count 4.02 L 4.68 Hemoglobin 11.8 L 13.5 Hematocrit 33.9 L 40.3 Mean Corpuscular Volume 84.3 86.1 Mean Corpuscular Hemoglobin 29.4 28.8 L Mean Corpuscular Hemoglobin Concent 34.8 33.5 Red Cell Distribution Width 14.8 H 14.8 H Platelet Count 54 L 70 #L Mean Platelet Volume 9.6 11.2 H Immature Granulocytes % 0.200 0.300 Neutrophils % 71.6 71.6 Segmented Neutrophils % (Manual) 74 Band Neutrophils % (Manual) 2 Lymphocytes % 17.4 16.8 Lymphocytes % (Manual) 13 L Reactive Lymphocytes % (Manual) 3 H Monocytes % 9.0 7.8 Monocytes % (Manual) 4 Eosinophils % 1.1 2.6 Eosinophils % (Manual) 3 Basophils % 0.7 0.9 Basophils % (Manual) 1 Nucleated Red Blood Cells % 0.0 0.0 Immature Granulocytes # 0.010 0.010 Neutrophils # 3.2 2.5 Neutrophils # (Manual) 3.3 Band Neutrophils # 0.0 Lymphocytes (Manual) 0.5 L Lymphocytes # 0.8 0.6 L Reactive Lymphocytes # 0.1 H Monocytes # 0.4 0.3 Monocytes # (Manual) 0.1 L Eosinophils # 0.1 0.1 Basophils # 0.0 0.0 Basophils # (Manual) 0.0 Nucleated Red Blood Cells # 0.0 0.0 Platelet Estimate DECREASED Polychromasia 1+ Sodium Level 132 L 136 Potassium Level 3.4 L 4.0 Chloride Level 97 100 Carbon Dioxide Level 28 28 Anion Gap 7 8 Blood Urea Nitrogen 3 L 3 L Creatinine 0.57 0.66 Est Glomerular Filtrat Rate mL/min > 60 > 60 Glucose Level 102 97 Calcium Level 8.1 L 9.0 Magnesium Level 1.4 L 2.5 # Total Bilirubin 0.5 0.5 Direct Bilirubin 0.00 0.00 Indirect Bilirubin 0.5 0.5 Aspartate Amino Transf (AST/SGOT) 181 H 138 H Alanine Aminotransferase (ALT/SGPT) 80 H 61 Alkaline Phosphatase 84 101 Total Protein 7.4 8.1 Albumin 3.7 4.2 Globulin 3.70 H 3.90 H Albumin/Globulin Ratio 1.00 1.07 Lipase 160 CC: ANGELIC SPENCER MD ; Exam/Review of Systems Exam Vitals Vital Signs Date Temp Pulse Resp B/P (MAP) Pulse Ox O2 O2 Flow FiO2 Time Delivery Rate 05/04/18 95 12:18 05/04/18 98.0 18 148/87 100 11:05 (107) 05/03/18 Room Air 17:57 Intake and Output 05/03/18 05/03/18 05/04/18 1515:00 23:00 07:00 IntakeIntake Total 300 ml 650 ml BalanceBalance 300 ml 650 ml Results Results 24hrs Laboratory Tests Test 05/03/18 14:52 05/04/18 07:26 05/04/18 07:27 White Blood Count 4.4 L 3.5 #L Red Blood Count 4.02 L 4.68 Hemoglobin 11.8 L 13.5 Hematocrit 33.9 L 40.3 Mean Corpuscular Volume 84.3 86.1 Mean Corpuscular Hemoglobin 29.4 28.8 L Mean Corpuscular Hemoglobin Concent 34.8 33.5 Red Cell Distribution Width 14.8 H 14.8 H Platelet Count 54 L 70 #L Mean Platelet Volume 9.6 11.2 H Immature Granulocytes % 0.200 0.300 Neutrophils % 71.6 71.6 Segmented Neutrophils % (Manual) 74 Band Neutrophils % (Manual) 2 Lymphocytes % 17.4 16.8 Lymphocytes % (Manual) 13 L Reactive Lymphocytes % (Manual) 3 H Monocytes % 9.0 7.8 Monocytes % (Manual) 4 Eosinophils % 1.1 2.6 Eosinophils % (Manual) 3 Basophils % 0.7 0.9 Basophils % (Manual) 1 Nucleated Red Blood Cells % 0.0 0.0 Immature Granulocytes # 0.010 0.010 Neutrophils # 3.2 2.5 Neutrophils # (Manual) 3.3 Band Neutrophils # 0.0 Lymphocytes (Manual) 0.5 L Lymphocytes # 0.8 0.6 L Reactive Lymphocytes # 0.1 H Monocytes # 0.4 0.3 Monocytes # (Manual) 0.1 L Eosinophils # 0.1 0.1 Basophils # 0.0 0.0 Basophils # (Manual) 0.0 Nucleated Red Blood Cells # 0.0 0.0 Platelet Estimate DECREASED Polychromasia 1+ Sodium Level 132 L 136 Potassium Level 3.4 L 4.0 Chloride Level 97 100 Carbon Dioxide Level 28 28 Anion Gap 7 8 Blood Urea Nitrogen 3 L 3 L Creatinine 0.57 0.66 Est Glomerular Filtrat Rate mL/min > 60 > 60 Glucose Level 102 97 Calcium Level 8.1 L 9.0 Magnesium Level 1.4 L 2.5 # Total Bilirubin 0.5 0.5 Direct Bilirubin 0.00 0.00 Indirect Bilirubin 0.5 0.5 Aspartate Amino Transf (AST/SGOT) 181 H 138 H Alanine Aminotransferase (ALT/SGPT) 80 H 61 Alkaline Phosphatase 84 101 Total Protein 7.4 8.1 Albumin 3.7 4.2 Globulin 3.70 H 3.90 H Albumin/Globulin Ratio 1.00 1.07 Lipase 160 Medications Medication Current Medications IV Flush (NS 3 ml) 3 ml PER PROTOCOL IV ; Start 05/03/18 at 14:00 Ondansetron HCl (Zofran Inj) 4 mg Q6H PRN IV NAUSEA/VOMITING Last administered on 05/03/18at 19:31; Admin Dose 4 MG; Start 05/03/18 at 14:00 Acetaminophen (Tylenol Tab) 650 mg Q6H PRN PO .PAIN 1-3 OR TEMP; Start 05/03/18 at 14:00 Acetaminophen/ Hydrocodone Bitart ([place] (5/325)) 1 tab Q6H PRN PO .PAIN 4-6; Start 05/03/18 at 14:00 Morphine Sulfate (morphine) 2 mg Q4H PRN IV .PAIN 7-10 Last administered on 05/03/18at 19:30; Admin Dose 2 MG; Start 05/03/18 at 14:00 Pantoprazole (Protonix Iv) 40 mg BID@0600,1800 IV Last administered on 05/04/18at 05:48; Admin Dose 40 MG; Start 05/03/18 at 18:00 Multivitamins 10 ml/Thiamine HCl 100 mg/Folic Acid 1 mg/Sodium Chloride 1,011.2 ml @ 125 mls/ hr DAILY@09 IVPB Last administered on 05/03/18at 18:17; Admin Dose 125 MLS/HR; Start 05/03/18 at 16:00; Stop 05/04/18 at 15:59 Dextrose/Sodium Chloride 1,000 ml @ 75 mls/hr [id number] IV Last administered on 05/04/18at 09:11; Admin Dose 75 MLS/HR; Start 05/03/18 at 16:00 Metoclopramide HCl (Reglan) 10 mg Q6 IV Last administered on 05/04/18at 12:18; Admin Dose 10 MG; Start 05/03/18 at 18:00 Chlordiazepoxide (Librium) 25 mg BID PO ; Start 05/04/18 at 21:00 GARETT FAUSTIN [employer] May 04, 2018 14:31
[2018-05-04] MEDS: SUCRALFATE (100 MG/ML) 10ML CUP GTB SCH ×3 (15:17→21:24)
[2018-05-04] MEDS ORDERED: LIDOCAINE/MYLANTA 40 ML BTL PO ONE (15:30)
--- NOTE | 2018-05-04 18:23 | NUR ---
EOSS Pt is alert and oriented x 4 , denies any nausea or vomiting . With IVF maintenance. Tolerating food well. SR on the monitor. Continue to monitor.
[2018-05-04] MEDS ORDERED: CHLORDIAZEPOXIDE 25 MG CAP PO SCH (21:00)
[2018-05-05] VITALS (9 sets, daily range): BP systolic 112–133; BP diastolic 69–95; PULSE 87–141; RESP 16–20
[2018-05-05] MEDS: METOCLOPRAMIDE 10 MG INJ IV SCH (05:36)
[2018-05-05] MEDS: PANTOPRAZOLE 40 MG INJ IV SCH (05:36)
--- NOTE | 2018-05-05 06:02 | NUR ---
PT WITH NO DIAPHORESIS OVERNIGHT, BUT OCCASIONAL INCREASE IN HEART RATE WHENEVER PT IS OUT OF BED. PT ADVISED TO STAY IN BED. ALL NEEDS ATTENDED TO. WILL ENDORSE TO DAY SHIFT FOR CONTINUITY OF CARE.
--- NOTE | 2018-05-05 09:16 | PN ---
Date/Time of Note Date/Time of Note DATE: 05/05/18 TIME: 09:16 Assessment/Plan VTE Prophylaxis [place] [facility]: 1 SCD applied [place] [facility] SCD contraindicated: low risk/ambulating Pharmacological prophylaxis: NA/contraindicated Pharm contraindication: bleeding Lines/Catheters IV Catheter Type (from [facility]): Saline Lock Urinary Cath still in place: No Assessment/Plan Assessment/Plan 1. Acute GI bleed secondary to shallow gastric ulcers- stable - GI consultation appreciated and continue on PPI, Reglan, and Carafate - Will need to follow up with GI as outpt in 2 months for repeat EGD - EGD showed shallow based ulcers and gastroparesis. Patient denies any marijuana use - Continue monitoring for further episode and transfuse if hgb <7.5 2. Acute alcoholic hepatitis- improving - LFT trending down 3. Acute pancreatitis- resolved 4. Acute blood loss anemia- resolved - monitor for further episodes 5. Thrombocytopenia- improving - in setting of #2 6. Alcohol abuse - monitor for withdrawal - quick Librium taper. will continue for 1 more day - Ativan PRN - BB for tachycardia 7. Disposition - continue monitoring inhouse. Patient remains tachycardic and most likely still detoxing from alcohol Result Diagram: 05/05/1836 05/05/1836 Results 24hrs Laboratory Tests Test 05/05/18 05:15 05/05/18 05:36 Stool Occult Blood NEGATIVE White Blood Count 3.8 L Red Blood Count 4.47 Hemoglobin 13.3 Hematocrit 38.4 Mean Corpuscular Volume 85.9 Mean Corpuscular Hemoglobin 29.8 Mean Corpuscular Hemoglobin Concent 34.6 Red Cell Distribution Width 14.7 H Platelet Count 77 L Mean Platelet Volume 11.4 H Immature Granulocytes % 0.300 Neutrophils % 68.4 Lymphocytes % 17.3 Monocytes % 9.0 Eosinophils % 4.5 Basophils % 0.5 Nucleated Red Blood Cells % 0.0 Immature Granulocytes # 0.010 Neutrophils # 2.6 Lymphocytes # 0.7 L Monocytes # 0.3 Eosinophils # 0.2 Basophils # 0.0 Nucleated Red Blood Cells # 0.0 Sodium Level 136 Potassium Level 3.9 Chloride Level 103 Carbon Dioxide Level 28 Anion Gap 5 Blood Urea Nitrogen 4 L Creatinine 0.48 Est Glomerular Filtrat Rate mL/min > 60 Glucose Level 99 Calcium Level 9.0 Magnesium Level 2.2 Total Bilirubin 0.4 Direct Bilirubin 0.00 Indirect Bilirubin 0.4 Aspartate Amino Transf (AST/SGOT) 109 H Alanine Aminotransferase (ALT/SGPT) 63 Alkaline Phosphatase 74 Total Protein 7.2 Albumin 3.6 Globulin 3.60 H Albumin/Globulin Ratio 1.00 Subjective 24 Hr Interval Summary Free Text/Dictation Patient still with diaphoresis and palpitations. Still with discomfort when eating but has been a chronic issue. Exam/Review of Systems Exam Vitals Vital Signs Date Temp Pulse Resp B/P (MAP) Pulse Ox O2 O2 Flow FiO2 Time Delivery Rate 05/05/18 Nasal 3.0 09:02 Cannula 05/05/18 121 08:20 05/05/18 98.1 18 124/83 99 07:34 (97) Intake and Output 05/04/18 05/04/18 05/05/18 1515:00 23:00 07:00 IntakeIntake Total 1200 ml 1200 ml BalanceBalance 1200 ml 1200 ml Exam General: no acute distress Neck: Supple Chest: nontender Lungs: Clear to auscultation bilaterally no crackles rales or wheezing Heart: Normal S1-S2, Regular rhythm and rate. No overt murmurs appreciated on auscultation Abdomen: Soft , nontender, nondistended , bowel sounds are present. Results Results 24hrs Laboratory Tests Test 05/05/18 05:15 05/05/18 05:36 Stool Occult Blood NEGATIVE White Blood Count 3.8 L Red Blood Count 4.47 Hemoglobin 13.3 Hematocrit 38.4 Mean Corpuscular Volume 85.9 Mean Corpuscular Hemoglobin 29.8 Mean Corpuscular Hemoglobin Concent 34.6 Red Cell Distribution Width 14.7 H Platelet Count 77 L Mean Platelet Volume 11.4 H Immature Granulocytes % 0.300 Neutrophils % 68.4 Lymphocytes % 17.3 Monocytes % 9.0 Eosinophils % 4.5 Basophils % 0.5 Nucleated Red Blood Cells % 0.0 Immature Granulocytes # 0.010 Neutrophils # 2.6 Lymphocytes # 0.7 L Monocytes # 0.3 Eosinophils # 0.2 Basophils # 0.0 Nucleated Red Blood Cells # 0.0 Sodium Level 136 Potassium Level 3.9 Chloride Level 103 Carbon Dioxide Level 28 Anion Gap 5 Blood Urea Nitrogen 4 L Creatinine 0.48 Est Glomerular Filtrat Rate mL/min > 60 Glucose Level 99 Calcium Level 9.0 Magnesium Level 2.2 Total Bilirubin 0.4 Direct Bilirubin 0.00 Indirect Bilirubin 0.4 Aspartate Amino Transf (AST/SGOT) 109 H Alanine Aminotransferase (ALT/SGPT) 63 Alkaline Phosphatase 74 Total Protein 7.2 Albumin 3.6 Globulin 3.60 H Albumin/Globulin Ratio 1.00 Medications Medication Current Medications IV Flush (NS 3 ml) 3 ml PER PROTOCOL IV ; Start 05/03/18 at 14:00 Ondansetron HCl (Zofran Inj) 4 mg Q6H PRN IV NAUSEA/VOMITING Last administered on 05/03/18 19:31; Admin Dose 4 MG; Start 05/03/18 at 14:00 Acetaminophen (Tylenol Tab) 650 mg Q6H PRN PO .PAIN 1-3 OR TEMP; Start 05/03/18 at 14:00 Acetaminophen/ Hydrocodone Bitart ([place] (5/325)) 1 tab Q6H PRN PO .PAIN 4-6; Start 05/03/18 at 14:00 Morphine Sulfate (morphine) 2 mg Q4H PRN IV .PAIN 7-10 Last administered on 05/03/18 19:30; Admin Dose 2 MG; Start 05/03/18 at 14:00 Pantoprazole (Protonix Iv) 40 mg BID@0600,1800 IV Last administered on 05/05/18 05:36; Admin Dose 40 MG; Start 05/03/18 at 18:00 Dextrose/Sodium Chloride 1,000 ml @ 75 mls/hr [id number] IV Last administered on 05/04/18 09:11; Admin Dose 75 MLS/HR; Start 05/03/18 at 16:00 Metoclopramide HCl (Reglan) 10 mg Q6 IV Last administered on 05/05/18 05:36; Admin Dose 10 MG; Start 05/03/18 at 18:00 Sucralfate (Carafate Susp) 1 gm QID GTB Last administered on 05/04/18 21:24; Admin Dose 1 GM; Start 05/04/18 at 14:30 Chlordiazepoxide (Librium) 25 mg DAILY PO ; Start 05/05/18 at 09:00; Stop 05/06/18 at 08:59 BRENDA LUCIO MD May 05, 2018 09:16
[2018-05-05] MEDS: SUCRALFATE (100 MG/ML) 10ML CUP GTB SCH (09:57)
[2018-05-05] MEDS: CHLORDIAZEPOXIDE 25 MG CAP PO SCH (09:57)
--- NOTE | 2018-05-05 10:23 | PN ---
Date/Time of Note Date/Time of Note DATE: 05/05/18 TIME: 10:05 Assessment/Plan VTE Prophylaxis Risk score (from Ns)>0 risk: 1 SCD applied (from Ns): No SCD contraindicated: low risk/ambulating Pharmacological prophylaxis: heparin Lines/Catheters IV [facility]from [facility] Saline Lock Urinary Cath still in place: No Assessment/Plan Assessment/Plan Assessment: GI bleeding likely upper GI S/o EGD 05/03/18 - Shallow gastric ulcers -Gastroparesis Heavy ethanol abuse. Constipation Thrombocytopenia Probable alcoholic liver disease - elevated AST Plan: [place] diet Reglan 10 TID Protonix 40 mg BID Carafate QID Stool for H pylori Avoid NSAIDs Avoid Alcohol Repeat EGD in 8 weeks Patient seen in collaboration with Dr. Spencer Subjective: Patient is states Epigastric pain resolved.Discussed treatment of gastroparesis, continue Reglan TID Pt is c/o constipation will start on Amitiza.. Recommend repeat EGD in 8 weeks to assess the healing on Lu. Continue PPI BID and Carafate QID for 3 months. PHYSICAL EXAMINATION: GENERAL: Well developed, well nourished, alert & oriented x 3, tremulous, in no acute distress SKIN: No lesions, no stigmata chronic liver disease, no evidence of bleeding diathesis LYMPHATIC: No palpable lymphadenopathy. HEAD: Normocephalic, atraumatic, no tenderness. EYES: Pupils equal reactive to light and accommodation, full extraocular movements, sclera clear, non-icteric, no discharge. EARS/NOSE AND THROAT: Ears normal, nose normal, oropharynx normal, oral membranes well hydrated without lesions. NECK: Supple, no masses, thyroid normal, JVP within normal limits, carotids normal without bruits. CHEST: Inspection within normal limits. CARDIOVASCULAR: Heart: Regular rate and rhythm, no murmurs, gallops or rubs. Peripheral pulses present within normal limits, no cyanosis, clubbing or edemas. No pulsatile abdominal mass RESPIRATORY: Lungs clear to auscultation and percussion, no wheezing, no rubs GASTROINTESTINAL AND LIVER: Abdomen: Soft, no tenderness, non-distended, no hernias, no masses, no organomegaly, no ascites, no guarding, no rebound tenderness, normoactive bowel sounds. Rectal: Deferred. GENITOURINARY: Female genitalia within normal limits. EXTREMITIES: No cyanosis, clubbing or edema. Result Diagram: 05/05/1836 05/05/1836 Results 24hrs Laboratory Tests Test 05/05/18 05:15 05/05/18 05:36 Stool Occult Blood NEGATIVE White Blood Count 3.8 L Red Blood Count 4.47 Hemoglobin 13.3 Hematocrit 38.4 Mean Corpuscular Volume 85.9 Mean Corpuscular Hemoglobin 29.8 Mean Corpuscular Hemoglobin Concent 34.6 Red Cell Distribution Width 14.7 H Platelet Count 77 L Mean Platelet Volume 11.4 H Immature Granulocytes % 0.300 Neutrophils % 68.4 Lymphocytes % 17.3 Monocytes % 9.0 Eosinophils % 4.5 Basophils % 0.5 Nucleated Red Blood Cells % 0.0 Immature Granulocytes # 0.010 Neutrophils # 2.6 Lymphocytes # 0.7 L Monocytes # 0.3 Eosinophils # 0.2 Basophils # 0.0 Nucleated Red Blood Cells # 0.0 Sodium Level 136 Potassium Level 3.9 Chloride Level 103 Carbon Dioxide Level 28 Anion Gap 5 Blood Urea Nitrogen 4 L Creatinine 0.48 Est Glomerular Filtrat Rate mL/min > 60 Glucose Level 99 Calcium Level 9.0 Magnesium Level 2.2 Total Bilirubin 0.4 Direct Bilirubin 0.00 Indirect Bilirubin 0.4 Aspartate Amino Transf (AST/SGOT) 109 H Alanine Aminotransferase (ALT/SGPT) 63 Alkaline Phosphatase 74 Total Protein 7.2 Albumin 3.6 Globulin 3.60 H Albumin/Globulin Ratio 1.00 CC: ANGELIC SPENCER MD ; Exam/Review of Systems Exam Vitals Vital Signs Date Temp Pulse Resp B/P (MAP) Pulse Ox O2 O2 Flow FiO2 Time Delivery Rate 05/05/18 Nasal 3.0 09:02 Cannula 05/05/18 121 08:20 05/05/18 98.1 18 124/83 99 07:34 (97) Intake and Output 05/04/18 05/04/18 05/05/18 1515:00 23:00 07:00 IntakeIntake Total 1200 ml 1200 ml BalanceBalance 1200 ml 1200 ml Results Results 24hrs Laboratory Tests Test 05/05/18 05:15 05/05/18 05:36 Stool Occult Blood NEGATIVE White Blood Count 3.8 L Red Blood Count 4.47 Hemoglobin 13.3 Hematocrit 38.4 Mean Corpuscular Volume 85.9 Mean Corpuscular Hemoglobin 29.8 Mean Corpuscular Hemoglobin Concent 34.6 Red Cell Distribution Width 14.7 H Platelet Count 77 L Mean Platelet Volume 11.4 H Immature Granulocytes % 0.300 Neutrophils % 68.4 Lymphocytes % 17.3 Monocytes % 9.0 Eosinophils % 4.5 Basophils % 0.5 Nucleated Red Blood Cells % 0.0 Immature Granulocytes # 0.010 Neutrophils # 2.6 Lymphocytes # 0.7 L Monocytes # 0.3 Eosinophils # 0.2 Basophils # 0.0 Nucleated Red Blood Cells # 0.0 Sodium Level 136 Potassium Level 3.9 Chloride Level 103 Carbon Dioxide Level 28 Anion Gap 5 Blood Urea Nitrogen 4 L Creatinine 0.48 Est Glomerular Filtrat Rate mL/min > 60 Glucose Level 99 Calcium Level 9.0 Magnesium Level 2.2 Total Bilirubin 0.4 Direct Bilirubin 0.00 Indirect Bilirubin 0.4 Aspartate Amino Transf (AST/SGOT) 109 H Alanine Aminotransferase (ALT/SGPT) 63 Alkaline Phosphatase 74 Total Protein 7.2 Albumin 3.6 Globulin 3.60 H Albumin/Globulin Ratio 1.00 Medications Medication Current Medications IV Flush (NS 3 ml) 3 ml PER PROTOCOL IV ; Start 05/03/18 at 14:00 Ondansetron HCl (Zofran Inj) 4 mg Q6H PRN IV NAUSEA/VOMITING Last administered on 05/03/18at 19:31; Admin Dose 4 MG; Start 05/03/18 at 14:00 Acetaminophen (Tylenol Tab) 650 mg Q6H PRN PO .PAIN 1-3 OR TEMP; Start 05/03/18 at 14:00 Acetaminophen/ Hydrocodone Bitart ([place] (5/325)) 1 tab Q6H PRN PO .PAIN 4-6; Start 05/03/18 at 14:00 Morphine Sulfate (morphine) 2 mg Q4H PRN IV .PAIN 7-10 Last administered on 05/03/18at 19:30; Admin Dose 2 MG; Start 05/03/18 at 14:00 Pantoprazole (Protonix Iv) 40 mg BID@0600,1800 IV Last administered on 05/05/18at 05:36; Admin Dose 40 MG; Start 05/03/18 at 18:00 Dextrose/Sodium Chloride 1,000 ml @ 75 mls/hr [id number] IV Last administered on 05/04/18at 09:11; Admin Dose 75 MLS/HR; Start 05/03/18 at 16:00 Metoclopramide HCl (Reglan) 10 mg Q6 IV Last administered on 05/05/18at 05:36; Admin Dose 10 MG; Start 05/03/18 at 18:00 Sucralfate (Carafate Susp) 1 gm QID GTB Last administered on 05/05/18at 09:57; Admin Dose 1 GM; Start 05/04/18 at 14:30 Chlordiazepoxide (Librium) 25 mg DAILY PO Last administered on 05/05/18at 09:57; Admin Dose 25 MG; Start 05/05/18 at 09:00; Stop 05/06/18 at 08:59 GARETT FAUSTIN NP May 05, 2018 10:20
[2018-05-05] MEDS ORDERED: LORAZEPAM 2 MG INJ IV PRN (10:30)
[2018-05-05] MEDS: LUBIPROSTONE 24 MCG CAP PO SCH ×2 (11:50→20:49)
[2018-05-05] MEDS: DEXTROSE 5%-0.45% NACL 1,000 ML IV SCH ×2 (11:50→21:48)
[2018-05-05] MEDS: SUCRALFATE (100 MG/ML) 10ML CUP PO SCH ×3 (14:29→20:49)
[2018-05-05] MEDS: METOCLOPRAMIDE 10 MG TAB PO SCH ×2 (14:29→21:57)
[2018-05-05] MEDS ORDERED: METOPROLOL 5 MG INJ IV PRN (16:30)
[2018-05-05] MEDS: PANTOPRAZOLE (EC) 40 MG TAB PO SCH (17:42)
--- NOTE | 2018-05-05 19:08 | NUR ---
ST on monitor, Dr. Guerra aware with order. Lopressor IV given per MD order for elevated HR>100.
[2018-05-06] VITALS (13 sets, daily range): BP systolic 100–124; BP diastolic 62–88; PULSE 92–170; RESP 18–20
[2018-05-06] MEDS: PANTOPRAZOLE (EC) 40 MG TAB PO SCH ×2 (05:26→17:47)
[2018-05-06] MEDS: METOCLOPRAMIDE 10 MG TAB PO SCH ×3 (05:26→22:09)
--- NOTE | 2018-05-06 06:09 | NUR ---
PT REMAIN IN STABLE CONDITION OVERNIGHT. NO ACUTE CHANGES. WILL ENDORSE TO DAY SHIFT FOR CONTINUITY OF CARE.
[2018-05-06] MEDS: DEXTROSE 5%-0.45% NACL 1,000 ML IV SCH (08:28)
[2018-05-06] MEDS: LUBIPROSTONE 24 MCG CAP PO SCH ×2 (08:28→22:09)
[2018-05-06] MEDS: SUCRALFATE (100 MG/ML) 10ML CUP PO SCH ×4 (08:28→22:09)
[2018-05-06] MEDS: CHLORDIAZEPOXIDE 25 MG CAP PO SCH (08:30)
--- NOTE | 2018-05-06 09:29 | PN ---
Date/Time of Note Date/Time of Note DATE: 05/06/18 TIME: 09:29 Assessment/Plan VTE Prophylaxis Risk score (from Ns)>0 risk: 0 SCD applied (from Ns): No SCD contraindicated: low risk/ambulating Pharmacological prophylaxis: NA/contraindicated Pharm contraindication: bleeding Lines/Catheters [facility] IV Urinary Cath still in place: No Assessment/Plan Assessment/Plan 1. Acute GI bleed secondary to shallow gastric ulcers- stable - GI consultation appreciated and continue on PPI, Reglan, and Carafate - Will need to follow up with GI as outpt in 2 months for repeat EGD - EGD showed shallow based ulcers and gastroparesis. - Continue monitoring for further episode and transfuse if hgb <7.5 2. Acute alcoholic hepatitis- improving - LFT trending down 3. Acute pancreatitis- resolved 4. Acute blood loss anemia- resolved - monitor for further episodes 5. Thrombocytopenia- improving - in setting of #2 6. Alcohol abuse - monitor for withdrawal - Librium taper completed - Ativan PRN - BB for tachycardia 7. Disposition - continue monitoring inhouse. Still tachycardic in the 120s and 170s with ambulation. Need improvement in HR prior to discharge due to risk of DT after 3 weeks of binge drinking Result Diagram: 05/05/1836 05/06/1831 Results 24hrs Laboratory Tests Test 05/06/18 05:31 Sodium Level 135 Potassium Level 3.9 Chloride Level 102 Carbon Dioxide Level 26 Anion Gap 7 Blood Urea Nitrogen 8 Creatinine 0.45 Est Glomerular Filtrat Rate mL/min > 60 Glucose Level 96 Calcium Level 8.7 Total Bilirubin 0.2 Direct Bilirubin 0.00 Indirect Bilirubin 0.2 Aspartate Amino Transf (AST/SGOT) 98 H Alanine Aminotransferase (ALT/SGPT) 62 Alkaline Phosphatase 66 Total Protein 6.6 Albumin 3.4 Globulin 3.20 Albumin/Globulin Ratio 1.06 Subjective 24 Hr Interval Summary Free Text/Dictation Patient still lightheaded with ambulation given tachycardia and waking up diaphoretic. Exam/Review of Systems Exam Vitals Vital Signs Date Temp Pulse Resp B/P (MAP) Pulse Ox O2 O2 Flow FiO2 Time Delivery Rate 05/06/18 98.6 100 20 120/72 100 08:13 (88) 05/05/18 Nasal 09:02 Cannula Intake and Output 05/05/18 05/05/18 05/06/18 1515:00 23:00 07:00 IntakeIntake Total 1200 ml 800 ml BalanceBalance 1200 ml 800 ml Exam General: no acute distress Neck: Supple Chest: nontender Lungs: Clear to auscultation bilaterally no crackles rales or wheezing Heart: Normal S1-S2, Regular rhythm. tachycardia. No overt murmurs appreciated on auscultation Abdomen: Soft , nontender, nondistended , bowel sounds are present. Results Results 24hrs Laboratory Tests Test 05/06/18 05:31 Sodium Level 135 Potassium Level 3.9 Chloride Level 102 Carbon Dioxide Level 26 Anion Gap 7 Blood Urea Nitrogen 8 Creatinine 0.45 Est Glomerular Filtrat Rate mL/min > 60 Glucose Level 96 Calcium Level 8.7 Total Bilirubin 0.2 Direct Bilirubin 0.00 Indirect Bilirubin 0.2 Aspartate Amino Transf (AST/SGOT) 98 H Alanine Aminotransferase (ALT/SGPT) 62 Alkaline Phosphatase 66 Total Protein 6.6 Albumin 3.4 Globulin 3.20 Albumin/Globulin Ratio 1.06 Medications Medication Current Medications IV Flush (NS 3 ml) 3 ml PER PROTOCOL IV ; Start 05/03/18 at 14:00 Ondansetron HCl (Zofran Inj) 4 mg Q6H PRN IV NAUSEA/VOMITING Last administered on 05/03/18at 19:31; Admin Dose 4 MG; Start 05/03/18 at 14:00 Acetaminophen (Tylenol Tab) 650 mg Q6H PRN PO .PAIN 1-3 OR TEMP; Start 05/03/18 at 14:00 Acetaminophen/ Hydrocodone Bitart ([place] (5/325)) 1 tab Q6H PRN PO .PAIN 4-6; Start 05/03/18 at 14:00 Morphine Sulfate (morphine) 2 mg Q4H PRN IV .PAIN 7-10 Last administered on 05/03/18 19:30; Admin Dose 2 MG; Start 05/03/18 at 14:00 Dextrose/Sodium Chloride 1,000 ml @ 75 mls/hr [id number] IV Last administered on 05/06/18 08:28; Admin Dose 75 MLS/HR; Start 05/03/18 at 16:00 Chlordiazepoxide (Librium) 25 mg DAILY PO Last administered on 05/06/18 08:30; Admin Dose 25 MG; Start 05/05/18 at 09:00; Stop 05/06/18 at 23:55 Lubiprostone (Amitiza) 24 mcg BID PO Last administered on 05/06/18 08:28; Admin Dose 24 MCG; Start 05/05/18 at 10:30 Lorazepam (Ativan) 1 mg Q6H PRN IV withdrawal; Start 05/05/18 at 10:30 Pantoprazole (Protonix Tab) 40 mg BID@06,18 PO Last administered on 05/06/18 05:26; Admin Dose 40 MG; Start 05/05/18 at 18:00 Metoclopramide HCl (Reglan) 10 mg Q8 PO Last administered on 05/06/18 05:26; Admin Dose 10 MG; Start 05/05/18 at 14:00 Sucralfate (Carafate Susp) 1 gm QID PO Last administered on 05/06/18 08:28; Admin Dose 1 GM; Start 05/05/18 at 13:00 Metoprolol Tartrate (Lopressor) 5 mg Q6H PRN IV HR >110 Last administered on 05/05/18at 17:42; Admin Dose 5 MG; Start 05/05/18 at 16:30 BRENDA LUCIO MD May 06, 2018 09:29
--- NOTE | 2018-05-06 16:32 | PN ---
Date/Time of Note Date/Time of Note DATE: 05/06/18 TIME: 16:29 Assessment/Plan VTE Prophylaxis Risk score (from Nsg)>0 risk: 0 SCD applied (from Nsg): No SCD contraindicated: other (scds) Pharmacological prophylaxis: other (scds) Lines/Catheters IV Catheter Type (from Nrs): Peripheral IV Urinary Cath still in place: No Assessment/Plan Hospital Course Assessment: GI bleeding likely upper GI S/o EGD 05/03/18 - Shallow gastric ulcers -Gastroparesis Heavy ETOH abuse Constipation- started Amitiza Thrombocytopenia Probable alcoholic liver disease - elevated AST- LFTs trending down Plan: White diet Reglan 10 TID/Protonix 40 mg BID/Carafate QID Stool for H pylori- pending Avoid NSAIDs Avoid Alcohol Repeat EGD in 8 weeks Patient seen in collaboration with Dr. Spencer/Abad Subjective: Pending d/c when Hr is controlled. Currently patient feels well, no overt signs of GI bleed. No c/o abd pain. nausea or vomiting- at this time, however patient c/o small amt of emesis this am- no further episodes noted Discussed treatment of gastroparesis, continue Reglan TID Recommend repeat EGD in 8 weeks to assess the healing on Lu. Continue PPI BID and Carafate QID for 3 months. PHYSICAL EXAMINATION: GENERAL: Well developed, well nourished, alert & oriented x 3, tremulous, in no acute distress SKIN: No lesions, no stigmata chronic liver disease, no evidence of bleeding diathesis EYES: Pupils equal reactive to light and accommodation EARS/NOSE AND THROAT: Ears normal, nose normal, oropharynx normal. NECK: Supple, no masses CHEST: Inspection within normal limits. CARDIOVASCULAR: Heart: Regular rate and rhythm, with periods of tachycardia RESPIRATORY: Lungs clear to auscultation GASTROINTESTINAL AND LIVER: Abdomen: Soft, no tenderness, non-distended, no hernias, no masses, no organomegaly, no ascites, no guarding, no rebound tenderness, normoactive bowel sounds. Rectal: Deferred. GENITOURINARY: Female genitalia within normal limits. EXTREMITIES: No cyanosis, clubbing or edema. Result Diagram: 05/05/18 0536 05/06/18 0531 Results 24hrs Laboratory Tests Test 05/06/18 05:31 Sodium Level 135 Potassium Level 3.9 Chloride Level 102 Carbon Dioxide Level 26 Anion Gap 7 Blood Urea Nitrogen 8 Creatinine 0.45 Est Glomerular Filtrat Rate mL/min > 60 Glucose Level 96 Calcium Level 8.7 Total Bilirubin 0.2 Direct Bilirubin 0.00 Indirect Bilirubin 0.2 Aspartate Amino Transf (AST/SGOT) 98 H Alanine Aminotransferase (ALT/SGPT) 62 Alkaline Phosphatase 66 Total Protein 6.6 Albumin 3.4 Globulin 3.20 Albumin/Globulin Ratio 1.06 Exam/Review of Systems Exam Vitals Vital Signs Date Temp Pulse Resp B/P (MAP) Pulse Ox O2 O2 Flow FiO2 Time Delivery Rate 05/06/18 98.0 96 19 119/62 99 16:15 (81) 05/05/18 Nasal 09:02 Cannula Intake and Output 05/05/18 05/05/18 05/06/18 1515:00 23:00 07:00 IntakeIntake Total 1200 ml 800 ml BalanceBalance 1200 ml 800 ml Results Results 24hrs Laboratory Tests Test 05/06/18 05:31 Sodium Level 135 Potassium Level 3.9 Chloride Level 102 Carbon Dioxide Level 26 Anion Gap 7 Blood Urea Nitrogen 8 Creatinine 0.45 Est Glomerular Filtrat Rate mL/min > 60 Glucose Level 96 Calcium Level 8.7 Total Bilirubin 0.2 Direct Bilirubin 0.00 Indirect Bilirubin 0.2 Aspartate Amino Transf (AST/SGOT) 98 H Alanine Aminotransferase (ALT/SGPT) 62 Alkaline Phosphatase 66 Total Protein 6.6 Albumin 3.4 Globulin 3.20 Albumin/Globulin Ratio 1.06 Medications Medication Current Medications IV Flush (NS 3 ml) 3 ml PER PROTOCOL IV ; Start 05/03/18 at 14:00 Ondansetron HCl (Zofran Inj) 4 mg Q6H PRN IV NAUSEA/VOMITING Last administered on 05/03/18at 19:31; Admin Dose 4 MG; Start 05/03/18 at 14:00 Acetaminophen (Tylenol Tab) 650 mg Q6H PRN PO .PAIN 1-3 OR TEMP; Start 05/03/18 at 14:00 Acetaminophen/ Hydrocodone Bitart ([place] (5/325)) 1 tab Q6H PRN PO .PAIN 4-6; Start 05/03/18 at 14:00 Morphine Sulfate (morphine) 2 mg Q4H PRN IV .PAIN 7-10 Last administered on 05/03/18at 19:30; Admin Dose 2 MG; Start 05/03/18 at 14:00 Dextrose/Sodium Chloride 1,000 ml @ 75 mls/hr [id number] IV Last administered on 05/06/18 08:28; Admin Dose 75 MLS/HR; Start 05/03/18 at 16:00 Chlordiazepoxide (Librium) 25 mg DAILY PO Last administered on 05/06/18 08:30; Admin Dose 25 MG; Start 05/05/18 at 09:00; Stop 05/06/18 at 23:55 Lubiprostone (Amitiza) 24 mcg BID PO Last administered on 05/06/18 08:28; Admin Dose 24 MCG; Start 05/05/18 at 10:30 Lorazepam (Ativan) 1 mg Q6H PRN IV withdrawal; Start 05/05/18 at 10:30 Pantoprazole (Protonix Tab) 40 mg BID@06,18 PO Last administered on 05/06/18 05:26; Admin Dose 40 MG; Start 05/05/18 at 18:00 Metoclopramide HCl (Reglan) 10 mg Q8 PO Last administered on 05/06/18 13:27; Admin Dose 10 MG; Start 05/05/18 at 14:00 Sucralfate (Carafate Susp) 1 gm QID PO Last administered on 05/06/18 13:27; Admin Dose 1 GM; Start 05/05/18 at 13:00 Metoprolol Tartrate (Lopressor) 5 mg Q6H PRN IV HR >110 Last administered on 05/05/18 17:42; Admin Dose 5 MG; Start 05/05/18 at 16:30 JEFFREY HUNT May 06, 2018 16:32
--- NOTE | 2018-05-06 18:32 | NUR ---
ST on monitor, pt asymptomatic. Condition stable. Continue with plan of care. Needs attended.
[2018-05-07] VITALS: PULSE 103
[2018-05-07] MEDS: DEXTROSE 5%-0.45% NACL 1,000 ML IV SCH ×2 (00:03→13:20)
[2018-05-07 04:00] VITALS: PULSE 96
[2018-05-07 04:26] VITALS: BP 120/65; PULSE 100; RESP 18
--- NOTE | 2018-05-07 05:36 | NUR ---
RN NOTES: LAST NIGHT PT SAID,"FELL BETTER THAN THE FIRST DAY I WAS HERE, DOCTOR SAID I CAN STAY 1 MORE NIGHT, WILL BE D/C HOME TOMORROW". BOYFRIEND CAME TO VISIT PT AND LEFT BEFORE MIDNIGHT. NO C/O PAIN. HR =113 WHEN PT IS ON TOILET. CALLED [employer] MANAGER TO ADJUST ROOM TEMP TO 72 F DEGREE PER PT'S REQUEST. SLEEP WELL LAST NIGHT.
--- NOTE | 2018-05-07 05:44 | NUR ---
RN NOTES: SENT STOOL FOR H-PYLORIC TO THE LABS.
[2018-05-07] MEDS: PANTOPRAZOLE (EC) 40 MG TAB PO SCH (06:33)
[2018-05-07] MEDS: METOCLOPRAMIDE 10 MG TAB PO SCH ×2 (06:33→14:00)
[2018-05-07 07:15] VITALS: BP 137/79; PULSE 106; RESP 18
[2018-05-07 08:00] VITALS: PULSE 94
[2018-05-07] MEDS: SUCRALFATE (100 MG/ML) 10ML CUP PO SCH ×2 (08:28→13:35)
[2018-05-07] MEDS: LUBIPROSTONE 24 MCG CAP PO SCH (08:28)
[2018-05-07 11:29] VITALS: BP 118/71; PULSE 117; RESP 18
[2018-05-07] MEDS ORDERED: PANT40TA4 PO (12:17)
[2018-05-07] MEDS ORDERED: CLAR500T PO (12:17)
[2018-05-07] MEDS ORDERED: AMOX500T PO (12:17)
[2018-05-07] MEDS ORDERED: CARAS PO (12:17)
--- NOTE | 2018-05-07 12:19 | PDOCDIS ---
Discharge Instructions DIAGNOSIS Discharge Diagnosis Gastritis Peptic ulcer disease H Pylori infection CONDITION [id number] Patient Condition: [id number] Stable FOLLOW UP/APPOINTMENTS Follow-up Plan Take your antibiotics for H Pylori infection for two weeks as prescribed You should take an antiacid pill called a PPI (proton pump inhibitor) indefintily. I have prescribed you one called pantroprazole Make an appointment to see your service line coordinator in clinic in the next few weeks Dr Spencer. His office number is BURAK GRISSOM MD May 07, 2018 12:19
--- NOTE | 2018-05-07 12:21 | DS ---
Date/Time of Note Date/Time of Note DATE: 05/07/18 TIME: 12:20 Discharge Summary Admission/Discharge Info Admit Date/Time May 03, 2018 at 12:44 Discharge Date/Time Discharge Diagnosis Gastritis Peptic ulcer disease H Pylori infection Patient Condition: Stable Hospital Course Patient presented with abdominal pain, nausea and hematochezia. This was following an alcohol binge (doesn't drink normally). Upper endoscopy revealed peptic ulcer. Biopsy revealed chronic gastritis and H Pylori infection. She was prescribed PPI, amoxicillin and clarithromycin and encouraged to follow up in clinic with Dr Spencer. Follow-up Plan Take your antibiotics for H Pylori infection for two weeks as prescribed You should take an antiacid pill called a PPI (proton pump inhibitor) indefintily. I have prescribed you one called pantroprazole Make an appointment to see your claims vice president in clinic in the next few weeks Dr Spencer. His office number is Primary Care Provider Not On Staff Doctor Pending Labs Laboratory Tests Test 05/07/18 07:01 Sodium Level 136 mmol/L (135-144) Potassium Level 4.4 mmol/L (3.5-5.1) Chloride Level 104 mmol/L (97-110) Carbon Dioxide Level 28 mmol/L (21-31) Anion Gap 4 (5-13) Blood Urea Nitrogen 6 mg/dl (7-20) Creatinine 0.54 mg/dl (0.44-1.00) Est Glomerular Filtrat Rate mL/min > 60 mL/min (>60) Glucose Level 99 mg/dl (70-220) Calcium Level 9.2 mg/dl (8.4-10.2) Total Bilirubin 0.1 mg/dl (0.2-1.3) Direct Bilirubin 0.00 mg/dl (0.00-0.20) Indirect Bilirubin 0.1 mg/dl (0-1.1) Aspartate Amino Transf (AST/SGOT) 73 IU/L (15-46) Alanine Aminotransferase (ALT/SGPT) 51 IU/L (13-69) Alkaline Phosphatase 81 IU/L (42-121) Total Protein 7.5 g/dl (6.1-8.1) Albumin 3.8 g/dl (3.3-4.9) Globulin 3.70 g/dl (1.3-3.2) Albumin/Globulin Ratio 1.02 MILGROM,BURAK K MD May 07, 2018 12:21
--- NOTE | 2018-05-07 14:00 | NUR ---
Nurse Discharge Summary: Pt. is being discharged home escorted by one of the volunteers at [facility]. Discharge instructions given to patient. Went over new prescribed medications with patient. Printed educational material regarding H.Pylori and Peptic Ulcer Disease and gave to patient. Pt. verbalized understanding of discharge teaching. Administrative Manager removed. IV access removed. All belongings with patient.
== END 2018-05-07 14:03 | disposition home or self-care (01) | DRG 377 ==
LOC: TEL 12:44
PROVIDERS: ADMIT Family Medicine; ATTEND Internal Medicine
PROC: 0DB68ZX Excision of Stomach, Via Natural or Artificial Opening Endoscopic, Diagnostic (ICD-10-PCS; principal; 2018-05-03 17:55)
DX: K25.4 Chronic or unspecified gastric ulcer with hemorrhage (principal); K85.90 Acute pancreatitis without necrosis or infection, unspecified; D62 Acute posthemorrhagic anemia; K70.10 Alcoholic hepatitis without ascites; D69.6 Thrombocytopenia, unspecified; F10.10 Alcohol abuse, uncomplicated; K31.84 Gastroparesis; K59.00 Constipation, unspecified; K29.51 Unspecified chronic gastritis with bleeding
CPT/HCPCS: 80053; 82270; 83690; 83735; 85025; 87081; 87338; 88305; 88312; C9113; J2060; J2270; J2405; J2765; J3411; J3475; J3480; J7030; J7042

== ENCOUNTER 2018-08-08 05:25 | Emergency (ER) | payer OTHER ==
[~2018-08-08] VITALS: Wt 56.1 kg
[~2018-08-08 05:25] MED LIST: AMOX500T PO; CARAS PO; CLAR500T PO; PANT40TA4 PO
[2018-08-08] MEDS ORDERED: SOD CHLORIDE 0.9% 1,000 ML IV STA ×2 (05:37→06:26)
[2018-08-08] MEDS ORDERED: ONDANSETRON 4 MG INJ IV STA (05:37)
[2018-08-08] MEDS ORDERED: morphine 4 MG/ML VIAL IV STA (05:37)
[2018-08-08] MEDS ORDERED: FAMOTIDINE 20 MG INJ IV STA (05:57)
[2018-08-08] MEDS ORDERED: METOCLOPRAMIDE 10 MG INJ IV STA (05:57)
[2018-08-08] MEDS ORDERED: BELLADONNA/PHENOBARBITAL TAB PO STA (06:26)
[2018-08-08] MEDS ORDERED: LIDOCAINE/MYLANTA 40 ML BTL PO STA (06:26)
[2018-08-08] MEDS ORDERED: THIAMINE 100 MG TAB PO ONE (06:30)
--- NOTE | 2018-08-08 06:39 | ERD ---
ER Documentation Chief Complaint Chief Complaint VOMITING, AP X'S 1 DAY HPI This is a 32-year-old female that has a history of recent diagnosis of H. pylori in April 2018. The patient also has a history of alcoholic gastritis. The patient states that for the past 24 hours she is been having multiple episodes of nonbloody nonbilious emesis and epigastric pain. She did indicate that 2 days ago she drank heavily. She had no fevers or shaking or chills. She denies any shortness of breath. She denies any recent travel. She indicates she has been taking sucralfate as instructed for H. pylori and also completed a course of triple antibiotics. She states the epigastric pain is a burning-like sensation that does not radiate to the back. It is exacerbated after emesis. She has no chest pain. She has no frequency urgency or dysuria. ROS All systems reviewed and are negative except as per history of present illness. Medications Home Meds Active Scripts Amoxicillin Trihydrate (Amoxicillin) 500 Mg Tablet, 1000 MG PO BID for 14 Days, #28 TAB Prov:BURAK GRISSOM MD 05/07/18 Clarithromycin* (Clarithromycin*) 500 Mg Tablet, 500 MG PO BID for 14 Days, #28 TAB Prov:BURAK GRISSOM MD 05/07/18 Pantoprazole* (Pantoprazole*) 40 Mg Tablet.dr, 40 MG PO BID@06,18 for 60 Days, #120 TAB Prov:BURAK GRISSOM MD 05/07/18 Sucralfate* (Carafate*) 1 Gm/10 Ml Susp, 1 GM PO QID for 30 Days, #120 TAB Prov:BURAK GRISSOM MD 05/07/18 Allergies Allergies: Coded Allergies: No Known Allergy (Unverified , 12/27/16) PMhx/Soc Medical and Surgical Hx: pt denies Medical Hx History of Surgery: Yes (R FOOT BONE GROWTH SHAVED) Anesthesia Reaction: No Hx Neurological Disorder: No Hx Respiratory Disorders: No Hx Cardiac Disorders: No Hx Psychiatric Problems: No Hx Miscellaneous Medical Probl: No Hx Alcohol Use: Yes (SOCIALLY ONLY) Hx Substance Use: No Hx Tobacco Use: No Smoking Status: Never smoker Physical Exam Vitals Vital Signs Date Temp Pulse Resp B/P (MAP) Pulse Ox O2 O2 Flow FiO2 Time Delivery Rate 08/08/18 106 18 131/93 100 Room Air 05:56 (106) 08/08/18 98.4 122 18 162/90 98 05:29 (114) Physical Exam Constitutional:Well-developed. Well-nourished. Patient actively vomiting nonbloody nonbilious emesis HEENT:Normocephalic. Atraumatic.Pupils were equal round reactive to light. Dry mucous membranes.No tonsillar exudates. Neck: No nuchal rigidity. No lymphadenopathy. No posterior cervical spine ten derness or step-offs. Respiratory: Not using accessory muscles of respiration.Lungs were clear to au scultation bilaterally. No rhonchi. No rales. No wheezing. Cardiovascular: Regular rate regular rhythm.No murmurs. No rubs were appreciated.S1, S2 normal. Distal pulses are palpable 2+ bilaterally. GI: Abdomen was soft. Epigastric tenderness. Non Distended. No pulsatile abdominal masses or bruits. No rebound. No guarding. Bowel sounds were present and normal. Muscle skeletal: Full range of motion of both the upper and lower extremities bilaterally.Normal muscle tone.No assymetrical calf tenderness or swelling. Skin: No petechia, no purpura. No lesions on the palms or the soles of the feet. No maculopapular rash. NEURO: Patient was alert, awake, orientated x3.No facial droop. Gait observed and normal with no ataxia.Speech had regular rate and rhythm. No focal neurological deficits. Result Diagram: 08/08/18 0545 08/08/18 0545 Results 24 hrs Laboratory Tests Test 08/08/18 05:45 08/08/18 05:48 White Blood Count 4.0 10^3/ul Red Blood Count 4.76 10^6/ul Hemoglobin 13.8 g/dl Hematocrit 38.4 % Mean Corpuscular Volume 80.7 fl Mean Corpuscular Hemoglobin 29.0 pg Mean Corpuscular Hemoglobin Concent 35.9 g/dl Red Cell Distribution Width 13.2 % Platelet Count 120 10^3/UL Mean Platelet Volume 9.7 fl Immature Granulocytes % 0.200 % Neutrophils % 56.9 % Lymphocytes % 34.7 % Monocytes % 7.2 % Eosinophils % 0.0 % Basophils % 1.0 % Nucleated Red Blood Cells % 0.0 /100WBC Immature Granulocytes # 0.010 10^3/ul Neutrophils # 2.3 10^3/ul Lymphocytes # 1.4 10^3/ul Monocytes # 0.3 10^3/ul Eosinophils # 0.0 10^3/ul Basophils # 0.0 10^3/ul Nucleated Red Blood Cells # 0.0 10^3/ul Urine Color YELLOW Urine Clarity SLIGHTLY CLOUDY Urine pH 7.0 Urine Specific [place] 1.018 Urine Ketones TRACE mg/dL Urine Nitrite NEGATIVE mg/dL Urine Bilirubin NEGATIVE mg/dL Urine Urobilinogen 1+ mg/dL Urine Leukocyte Esterase NEGATIVE Tra/ul Urine Microscopic RBC 2 /HPF Urine Microscopic WBC 4 /HPF Urine Squamous Epithelial Cells FEW /HPF Urine Bacteria FEW /HPF Urine Hemoglobin 1+ mg/dL Urine Glucose NEGATIVE mg/dL Urine Total Protein 2+ mg/dl Sodium Level 136 mmol/L Potassium Level 4.0 mmol/L Chloride Level 100 mmol/L Carbon Dioxide Level 21 mmol/L Anion Gap 15 Blood Urea Nitrogen 10 mg/dl Creatinine 0.64 mg/dl Est Glomerular Filtrat Rate mL/min > 60 mL/min Glucose Level 118 mg/dl Calcium Level 9.0 mg/dl Total Bilirubin 0.8 mg/dl Direct Bilirubin 0.00 mg/dl Indirect Bilirubin 0.8 mg/dl Aspartate Amino Transf (AST/SGOT) 56 IU/L Alanine Aminotransferase (ALT/SGPT) 25 IU/L Alkaline Phosphatase 108 IU/L Total Protein 8.3 g/dl Albumin 4.6 g/dl Globulin 3.70 g/dl Albumin/Globulin Ratio 1.24 Lipase 135 U/L POC Beta HCG, Qualitative NEGATIVE Current Medications Medications Dose Sig/Miranda Start Time Status Last (Trade) Ordered Route PRN Stop Time Admin Dose Reason Admin Sodium 1,000 ml @ Q1H STAT 08/08/18 DC 08/08/18 Chloride 1,000 mls/hr IV 05:37 05:49 08/08/18 06:36 Morphine 4 mg ONCE STAT 08/08/18 DC 08/08/18 Sulfate IV 05:37 05:49 (morphine) 08/08/18 05:39 Ondansetron 4 mg ONCE STAT 08/08/18 DC 08/08/18 HCl (Zofran IV 05:37 05:49 Inj) 08/08/18 05:39 10 mg ONCE STAT 08/08/18 DC 08/08/18 Metoclopramid IV 05:57 06:11 e HCl 08/08/18 05:59 (Reglan) Famotidine 20 mg ONCE STAT 08/08/18 DC 08/08/18 (Pepcid Iv) IV 05:57 06:11 08/08/18 05:59 40 ml ONCE STAT 08/08/18 DC 08/08/18 Miscellaneous PO 06:26 06:38 Medication 08/08/18 06:30 (Gi Cocktail (2)) Belladonna/ 2 tab ONCE STAT 08/08/18 DC 08/08/18 Phenobarbital PO 06:26 06:38 () 08/08/18 06:30 Sodium 1,000 ml @ Q1H STAT 08/08/18 DC 08/08/18 Chloride 1,000 mls/hr IV 06:26 06:38 08/08/18 07:25 Thiamine 100 mg ONCE ONCE 08/08/18 DC 08/08/18 HCl PO 06:30 06:38 (Vitamin B1) 08/08/18 06:32 Lorazepam 1 mg ONCE ONCE 08/08/18 DC 08/08/18 (Ativan) IV 07:00 07:15 08/08/18 07:01 Procedures/MDM The patient presented to the emergency department with epigastric pain. My di fferential diagnosis included but was not limited to abdominal aortic aneurysm, choledocholithiasis, gallstone ileus, renal colic, pyelonephritis, pancreatitis, peptic ulcer disease, atypical myocardical infarction, mesenteric ischemia, GERD, pulmonary infarction. The patient was placed on a relationship management lead, continuous pulse oximetry and IV access was established by nursing staff. The patient was given antiemetics and intravenous morphine for analgesic control. However she continued to experience nonbloody nonbilious emesis was given further antiemetics including Reglan. She is also given thiamine as she has a history of alcohol abuse. There was no physical exam findings to suggest Warnicke's encephalopathy. I obtained a chest radiograph which showed no free air underneath the diaphragm. There was no elevation of LFTs to suggest ductal obstruction, cholangitis, cholecystiitis or hepatitis. Given that the urinalysis did not show bilirubinuria, my suspicion for common duct obstruction or hepatitis was low. The patient had no elevation of her lipase and therefore my clinical suspicion was low for acute pancreatitis. Observation Note: Time: 4 hours Family Hx: No Hypertension Evaluation: Multiple exams showed improving symptoms and no evidence of perforated viscus, pancreatitis or alcohol withdrawal. The patient did receive 1 mg of Ativan intravenously in the emergency department for mild alcohol withdrawal symptoms. No evidence of impending delirium tremors The patient was discharged home in fair condition. They were instructed to return to the emergency department at any time if there was any worsening of their condition. The patient stated they would follow up with their PCP in the next 24-48 hours to initiate a suitable medication regimen under the care of t [facility] PCP as well as to allow their PCP to monitor any drug reactions. The patient was discharged home with prescriptions after they gave informed consent to the new medication. They were also fully informed by myself on the adverse effects and adverse drug interactions in order to provide adequate safeguards to prevent possible adverse reactions to medications. Departure Diagnosis: Primary Impression: Alcoholic gastritis without bleeding Chronicity: acute Qualified Codes: K29.20 - Alcoholic gastritis without bleeding Condition: GABE Molina MD August 08, 2018 06:39
[2018-08-08] MEDS ORDERED: LORAZEPAM 2 MG INJ IV ONE (07:00)
[2018-08-08] MEDS ORDERED: ONDA4TAB14 PO (08:05)
[2018-08-08 08:12] VITALS: BP 125/77; PULSE 87; RESP 16
== END 2018-08-08 08:40 | disposition home or self-care (01) ==
LOC: E/R 05:25
DX: K29.20 Alcoholic gastritis without bleeding (principal)
CPT/HCPCS: 36415; 71045; 80053; 81001; 81025; 83690; 85025; 96374; 96375; J2060; J2270; J2405; J2765; J7030; Z7502; Z7610

== ENCOUNTER 2018-08-11 02:51 | Emergency (ER) | payer OTHER ==
[~2018-08-11] VITALS: Ht 160 cm; Wt 55.6 kg
[~2018-08-11 02:51] MED LIST changes: +ONDA4TAB14 PO
[2018-08-11 02:56] VITALS: Ht 160 cm; Wt 55.6 kg
[2018-08-11] MEDS ORDERED: LIDOCAINE/MYLANTA 40 ML BTL PO STA (03:32)
[2018-08-11] MEDS ORDERED: BELLADONNA/PHENOBARBITAL TAB PO STA (03:32)
[2018-08-11] MEDS ORDERED: LORA1TAB PO (03:37)
--- NOTE | 2018-08-11 03:41 | ERD ---
ER Documentation Chief Complaint Chief Complaint palpitations HPI This is a 32-year-old female who is here for insomnia. She says she has not slept more than 30 minutes x 3 days. She said that tonight she was trying to fall asleep again and she felt her heart palpitating for about 5 seconds and it went back into a normal rhythm then did it again for another 5 seconds. She said that she had no chest pain or shortness of breath. She has had this before in the past. The patient is also currently being treated for H. pylori and is taking her medications now. She says that she feels like her gastritis is acting up a little bit tonight. She says she does not feel excess stress but said that her mind is racing and is keeping her awake at night ROS All systems reviewed and are negative except as per history of present illness. Medications Home Meds Active Scripts Lorazepam* (Lorazepam*) 1 Mg Tablet, 1 MG PO Q8H PRN for INSOMNIA, #15 TAB Prov:MARÍA BROWER DO 08/11/18 Ondansetron (Ondansetron Odt) 4 Mg Tab.rapdis, 4 MG PO Q6H PRN for NAUSEA AND/OR VOMITING, #10 TAB Prov:GABE ROSAS MD 08/08/18 Amoxicillin Trihydrate (Amoxicillin) 500 Mg Tablet, 1000 MG PO BID for 14 Days, #28 TAB Prov:BURAK GRISSOM MD 05/07/18 Clarithromycin* (Clarithromycin*) 500 Mg Tablet, 500 MG PO BID for 14 Days, #28 TAB Prov:BURAK GRISSOM MD 05/07/18 Pantoprazole* (Pantoprazole*) 40 Mg Tablet.dr, 40 MG PO BID@06,18 for 60 Days, #120 TAB Prov:BURAK GRISSOM MD 05/07/18 Sucralfate* (Carafate*) 1 Gm/10 Ml Susp, 1 GM PO QID for 30 Days, #120 TAB Prov:BURAK GRISSOM MD 05/07/18 Allergies Allergies: Coded Allergies: Sulfa (Sulfonamide Antibiotics) (Verified Allergy, Unknown, swelling, 08/11/18) PMhx/Soc History of Surgery: Yes (R FOOT BONE GROWTH SHAVED) Anesthesia Reaction: No Hx Neurological Disorder: No Hx Respiratory Disorders: No Hx Cardiac Disorders: No Hx Psychiatric Problems: No Hx Miscellaneous Medical Probl: No Hx Alcohol Use: Yes (SOCIALLY ONLY) Hx Substance Use: No Hx Tobacco Use: No FmHx Family History: No coronary disease Physical Exam Vitals Vital Signs Date Temp Pulse Resp B/P (MAP) Pulse Ox O2 O2 Flow FiO2 Time Delivery Rate 08/11/18 97.3 119 18 160/84 100 02:56 (109) Physical Exam Const: Well-developed, well-nourished Head: Atraumatic, normocephalic Eyes: Normal Conjunctiva, PERRLA, EOMI, normal sclera, no nystagmus ENT: Normal External Ears, Nose and Mouth, moist mucus membranes. Neck: Full range of motion. No meningismus, no lymphadenopathy. Resp: Clear to auscultation bilaterally, no wheezing, rhonchi, rales Cardio: Regular rate and rhythm, no murmurs, S1 S2 present Abd: Soft, very mild epigastric tenderness, non distended. Normal bowel sounds, no guarding or rebound, no pulsitile abdominal masses or bruits Skin: No petechiae or rashes, no ecchymosis , no maculopapular rash Back: No midline or flank tenderness Ext: No cyanosis, or edema, FROM x 4, normal inspection, neurovascularly intact x 4 Neur: Awake and alert, STR 5/5 x 4, sensation intact x 4, no focal findings, cerebellum intact Psych: Normal Mood and Affect Results 24 hrs Current Medications Medications Dose Sig/Miranda Start Time Status Last (Trade) Ordered Route PRN Stop Time Admin Dose Reason Admin 40 ml ONCE STAT 08/11/18 DC Miscellaneous PO 03:32 Medication 08/11/18 03:35 (Gi Cocktail (2)) Belladonna/ 2 tab ONCE STAT 08/11/18 DC Phenobarbital PO 03:32 () 08/11/18 03:35 Lorazepam 1 mg ONCE ONCE 08/11/18 (Ativan) PO 04:00 08/11/18 04:01 Procedures/MDM Patient was given Ativan 1 mg p.o. and a prescription for some Ativan for sleep. We will give her a GI cocktail for her epigastric flareup. Reviewed sleep hygiene with her Departure Diagnosis: Primary Impression: Insomnia Insomnia type: unspecified Qualified Codes: G47.00 - Insomnia, unspecified Additional Impressions: Palpitations Dyspepsia Condition: Stable Patient Instructions: Insomnia, Palpitations MARÍA BROWER DO August 11, 2018 03:41
[2018-08-11 03:51] VITALS: BP 130/99; PULSE 91; RESP 19
[2018-08-11] MEDS ORDERED: LORAZEPAM 1 MG TAB PO ONE (04:00)
== END 2018-08-11 04:00 | disposition home or self-care (01) ==
LOC: E/R 02:51
DX: G47.00 Insomnia, unspecified (principal); R06.00 Dyspnea, unspecified
CPT/HCPCS: Z7502; Z7610; 99283

== ENCOUNTER 2018-10-26 18:51 | Emergency (ER) | payer OTHER ==
[~2018-10-26] VITALS: Ht 152.4 cm; Wt 55.5 kg
[~2018-10-26 18:51] MED LIST changes: +LORA1TAB PO
[2018-10-26 18:52] VITALS: BP 114/58; PULSE 74; RESP 20; Ht 152.4 cm; Wt 55.5 kg
--- NOTE | 2018-10-26 20:33 | ERD ---
ER Documentation Chief Complaint Chief Complaint BILATERAL ARM PAIN S/P IV INSERTION ON 09/30/18. HPI 33-year-old female presents to ED complaining of a bump in her left upper extremity. She reports that she was hospitalized 1 month ago for seizure in which they attempted several times to insert an IV. She reports that he was traumatic. Since leaving the hospital she has experienced her arm which she is concerned about. She denies any fevers or chills. Denies any shortness of breath, difficulty breathing, or signs of respiratory distress. She denies any previous history of blood clots. She states that she does not take medicine on a daily basis for anything and denies any other past medical history except for H. pylori. ROS All systems reviewed and are negative except as per history of present illness. Medications Home Meds Active Scripts Lorazepam* (Lorazepam*) 1 Mg Tablet, 1 MG PO Q8H PRN for INSOMNIA, #15 TAB Prov:MARÍA BROWER DO 08/11/18 Ondansetron (Ondansetron Odt) 4 Mg Tab.rapdis, 4 MG PO Q6H PRN for NAUSEA AND/OR VOMITING, #10 TAB Prov:GABE ROSAS MD 08/08/18 Amoxicillin Trihydrate (Amoxicillin) 500 Mg Tablet, 1000 MG PO BID for 14 Days, #28 TAB Prov:BURAK GRISSOM MD 05/07/18 Clarithromycin* (Clarithromycin*) 500 Mg Tablet, 500 MG PO BID for 14 Days, #28 TAB Prov:BURAK GRISSOM MD 05/07/18 Pantoprazole* (Pantoprazole*) 40 Mg Tablet.dr, 40 MG PO BID@06,18 for 60 Days, #120 TAB Prov:BURAK GRISSOM MD 05/07/18 Sucralfate* (Carafate*) 1 Gm/10 Ml Susp, 1 GM PO QID for 30 Days, #120 TAB Prov:BURAK GRISSOM MD 05/07/18 Allergies Allergies: Coded Allergies: Sulfa (Sulfonamide Antibiotics) (Verified Allergy, Unknown, swelling, 08/11/18) PMhx/Soc History of Surgery: Yes (R FOOT BONE GROWTH SHAVED, breast implants) Anesthesia Reaction: No Hx Neurological Disorder: No Hx Respiratory Disorders: No Hx Cardiac Disorders: No Hx Psychiatric Problems: No Hx Miscellaneous Medical Probl: Yes (SEIZURES) Hx Alcohol Use: Yes (SOCIALLY ONLY) Hx Substance Use: No Hx Tobacco Use: No Smoking Status: Never smoker FmHx Family History: No diabetes Physical Exam Vitals Vital Signs Date Temp Pulse Resp B/P (MAP) Pulse Ox O2 O2 Flow FiO2 Time Delivery Rate 10/26/18 98.5 74 20 114/58 99 18:52 (76) Physical Exam Const: No acute distress Head: Atraumatic Resp: Clear to auscultation bilaterally Cardio: Regular rate and rhythm, Abd: Soft, non tender, non distended. Ext: superficial bumps on vein on left UE, slightly tender Neur: Awake and alert Psych: Normal Mood and Affect Procedures/MDM ED COURSE: The patient was stable throughout ED course. I kept the patient informed of laboratory and diagnostic imaging results throughout the ED course. DIAGNOSTIC IMAGING: Read by radiologist. PROCEDURE: US upper extremity Venous. CLINICAL INDICATION: Left arm edema , pain TECHNIQUE: Multiple sonographic images of the left upper extremity venous system was obtained utilizing grayscale, color-flow, compressive sonography and doppler imaging with augmentation. The images were reviewed on a PACS workstation. COMPARISON: None. FINDINGS: The left basilic vein in the proximal forearm is not compressible with no Doppler flow. There is normal compressibility and flow within the left internal jugular vein, subclavian vein, axillary vein, brachial, cephalic , radial and ulnar veins. RPTAT: AA IMPRESSION: Focal thrombosis of the left basilic vein in the antecubital fossa and proximal left forearm. .Reddy Moore MD, MD Date Time Electronically viewed and signed by .Reddy Moore MD, on 10/26/2018 20:15 MEDICAL DECISION MAKING: Patient is a 33 year old female presenting with a bump on her Upper LE. U/S Venous doppler was performed showing Focal thrombosis of the left basilic vein in the antecubital fossa and proximal left forearm. However, this is a superficial vein. I have low suspicion for DVT, PE, abscess, septic joint. This was discussed with Dr. aCstellano who recommended that I send the patient home on outpt basis with warm compresses due to the fact that this is a superficial vein. He stated anticoagulant therapy is not needed at this time and to follow up with PCP. Patient was given strict return back to ED precautions if symptoms persist or worsen or she experiences any signs of respiratory distress. All questions answered and patient understands the plan and agrees. Vital signs were reviewed. Patient is afebrile. Patient was not hypoxic. Patient was hemodynamically stable. Patient was told to follow up with primary care for further care and management. DISCHARGE: At this time, patient is stable for discharge and outpatient management. I have instructed the patient to follow-up with their primary care physician in 1-2 days. I have discussed with the patient the possibility of needing to see a specialist for further workup and imaging studies if symptoms persist. I have instructed the patient to promptly return to the ER for any new or worsening symptoms including increased pain, fever, nausea, vomiting, weakness or LOC. The patient expressed understanding of and agreement with this plan. All questions were answered. Home care instructions were provided. Disclaimer: Inadvertent spelling and grammatical errors are likely due to EHR/dictation software use and do not reflect on the overall quality of patient care. Also, please note that the electronic time recorded on this note does not necessarily reflect the actual time of the patient encounter. 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 FURTHER EVALUATION AND TREATMENT OF YOUR CONDITION CAN WAIT UNTIL YOU ARE SEEN IN YOUR DOCTORS OFFICE WITHIN THE NEXT 1-2 DAYS. IT IS YOUR RESPONSIBILITY TO MAKE AN APPOINTMENT FOR FOLOW-UP CARE. IF YOU HAVE A PRIMARY DOCTOR --you should call your primary doctor and schedule an appointment IF YOU DO NOT HAVE A PRIMARY DOCTOR YOU CAN CALL OUR PHYSICIAN REFERRAL HOTLINE AT IF YOU CAN NOT AFFORD TO SEE A PHYSICIAN YOU CAN CHOSE FROM THE FOLLOWING [facility] [address] [facility]. [facility] [address] [address] [facility] [facility] [address] [facility]. [facility] [address] [facility]. [facility]. [address] [facility]. [facility] YOU HAVE RECEIVED A MEDICAL SCREENING EXAM AND THE RESULTS INDICATE THAT YOU DO NOT HAVE A CONDITION THAT REQUIRES URGENT TREATMENT IN THE EMERGENCY DEPARTMENT. FURTHER EVALUATION AND TREATMENT OF YOUR CONDITION CAN WAIT UNTIL YOU ARE SEEN IN YOUR DOCTORS OFFICE WITHIN THE NEXT 1-2 DAYS. IT IS YOUR RESPONSIBILITY TO MAKE AN APPOINTMENT FOR FOLOW-UP CARE. IF YOU HAVE A PRIMARY DOCTOR --you should call your primary doctor and schedule and appointment IF YOU DO NOT HAVE A PRIMARY DOCTOR YOU CAN CALL OUR PHYSICIAN REFERRAL HOTLINE AT . IF YOU CAN NOT AFFORD TO SEE A PHYSICIAN YOU CAN CHOSE FROM THE FOLLOWING [facility] INSTITUTIONS: [facility] [address] [place] [address] [facility] [address] [place] [address] [facility] [address] [place] [address] Additional Instructions: Call your primary care doctor TOMORROW for an appointment during the next 1-2 days.See the doctor sooner or return here if your condition worsens before your appointment time. WILL DAVIS PA-C Oct 26, 2018 20:33 ALDAIR LEON MD Oct 26, 2018 23:32
== END 2018-10-26 20:45 | disposition home or self-care (01) ==
LOC: FTE 18:51
DX: I82.712 Chronic embolism and thrombosis of superficial veins of left upper extremity (principal)
CPT/HCPCS: 93971; Z7502